=== PATIENT | female | born 2005 | race Caucasian/White ===

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

== ENCOUNTER 2023-07-07 08:26 | Outpatient (REF) | payer MEDICAID, SELFPAY ==
[2023-07-07 11:33] LABS: Hematocrit 43.5 % (37.0-47.0); Hemoglobin 13.7 g/dl (12.0-16.0); Mean Corpuscular HGB Conc 31.5 g/dl (31.0-35.0); Mean Corpuscular Hemoglobin 25.7 pg (27.0-33.0); Mean Corpuscular Volume 81.6 fL (80.0-98.0); Mean Platelet Volume 10.3 fL (9.4-12.3); Platelet Count 349 X10*3/uL (160-400); Red Blood Count 5.33 X10*6/uL (4.20-5.50); Red Cell Distribution Width 13.6 % (11.0-16.0); White Blood Count 12.3 X10*3/uL (4.8-10.8)
[2023-07-07 12:15] LABS: Alanine Aminotransferase 20 U/L (0-31); Albumin Level 4.3 g/dL (3.5-5.0); Alkaline Phosphatase 96 U/L (39-117); Anion Gap 13 (12-20); Aspartate Amino Transferase 21 U/L (5-31); Bilirubin Total 0.3 mg/dL (0.0-1.0); Blood Urea Nitrogen 12 mg/dL (9-16); Calcium 9.8 mg/dL (8.4-10.2); Carbon Dioxide 22 mmol/L (22-29); Chloride 108 mmol/L (96-108); Cholesterol 151 mg/dL (<200); Estimated Glomerular Filt Rate > 60; Glucose Random 79 mg/dL (60-115); HDL Cholesterol 42 mg/dL (>40); LDL Cholesterol Calculated 91 mg/dL (<100); Potassium 3.7 mmol/L (3.3-5.1); Sodium 139 mmol/L (135-145); Total Protein 8.3 g/dL (6.5-8.0); Triglycerides 94 mg/dL (<150)
== END 2023-07-07 08:27 | disposition home or self-care (01) ==
LOC: HO.HHCL 08:26
PROVIDERS: Visit Provider Internal Medicine
DX: E66.01 Morbid (severe) obesity due to excess calories (principal); Z68.41 Body mass index [BMI] 40.0-44.9, adult; G40.909 Epilepsy, unspecified, not intractable, without status epilepticus
CPT/HCPCS: 36415; 80053; 80061; 85027

== ENCOUNTER 2023-10-13 19:00 | Emergency (ER) | payer MEDICAID, SELFPAY ==
--- NOTE | ~2023-10-13 | XR_ITS ---
EXAMINATION: XR CHEST CLINICAL INFORMATION: Cough and fever COMPARISON: Previous chest x-ray most recent January 2022 TECHNIQUE: 2 views of the chest were obtained. FINDINGS: No significant abnormality is noted involving the heart, lungs, mediastinum, bony thorax or soft tissues. XR/XR chest 2V IMPRESSION: Unremarkable examination.
[2023-10-13 19:07] VITALS: BP 120/100; PULSE 82; O2SAT 96
--- NOTE | 2023-10-13 19:16 | ED_ITS ---
HPI - Weakness General Chief complaint: Upper Respiratory Symptoms Stated complaint: COVID +,LETHARGIC,AMS,URINE INCONTINENCE Time Seen by Provider: 10/13/23 21:33 Source: patient, family, RN notes reviewed, old records reviewed and senior marketing specialist Mode of arrival: EMS Limitations: language barrier and other (Patient is a poor historian) History of Present Illness HPI Narrative: 18-year-old female with past medical history significant for right-sided hemiparesis due to epilepsy and complications from intracranial procedures 11 years ago presents for evaluation of fevers, weakness and urinary incontinence. The patient is not incontinent of urine at baseline per the patient's caregiver. The patient was diagnosed with COVID-19 9 days ago She has not coughing but does experience occasional shortness of breath She denies any abdominal pain but has had nausea and vomiting They tried to see the primary care provider who referred the patient to the ED for evaluation The patient has no other complaints or concerns at this time Related Data Previous Rx's Medication Instructions Recorded benzonatate 100 mg capsule 100 mg PO BID PRN cough #20 caps 01/25/22 erythromycin 5 mg/gram (0.5 %) eye 1 appl ophthalmic (eye) BID 7 days 01/25/22 ointment #3.5 grams fluticasone propionate 50 1 spray intranasal BID #16 grams 01/25/22 mcg/actuation nasal spray,suspension (Flonase Allergy Relief) loratadine 10 mg tablet (Claritin) 10 mg PO DAILY PRN allergy 01/25/22 symptoms #10 tabs albuterol sulfate 90 mcg/actuation 2 puff inhalation Q4-6H PRN 06/16/22 aerosol inhaler shortness of breath or wheezing #8.5 grams azithromycin 250 mg tablet See Rx Instructions PO .COMPLEX #6 06/16/22 tabs ibuprofen 200 mg tablet 400 mg (2 x 200 mg) PO Q8H PRN 06/16/22 pain 7 days #28 tabs cefuroxime axetil 250 mg tablet 250 mg PO Q12H #14 tabs 10/13/23 ondansetron 4 mg disintegrating 4 mg PO Q8H PRN nausea and 10/13/23 tablet vomiting #20 tabs Allergies Allergy/AdvReac Type Severity Reaction Status Date / Time No Known Allergies Allergy Verified 10/13/23 19:23 [No Known Allergies*] Review of Systems 2 Constitutional: Constitutional: Reports chills, Reports fever(s), Reports malaise, Reports poor appetite and Reports weakness Cardiovascular: Cardiovascular: Denies chest pain and Reports dyspnea Respiratory: Respiratory: Denies cough and Reports dyspnea Gastrointestinal: Gastrointestinal: Denies abdominal pain, Reports diarrhea, Reports nausea and Reports vomiting Musculoskeletal: Musculoskeletal: Denies back pain Integumentary/Breasts: Skin/Breast: Denies rash Neurologic: Reports weakness PMFSH Past Medical History Medical History Brain damage Mentally challenged Seizure Social History Social History Alcohol intake: never Advance Directives: No Advance Directives Information Provided: No Physical Exam 2 Vital Signs: Vital Signs: Last Vital Signs Temp 98.7 F 10/13/23 22:35 Pulse 66 10/13/23 22:35 Resp 20 10/13/23 22:35 BP 107/65 10/13/23 22:35 Pulse Ox 97 10/13/23 22:35 O2 Del Method Room Air 10/13/23 22:35 BMI result Body Mass Index 39.3 Const: General: healthy appearing, comfortable, no acute distress, alert and awake Nutritional Appearance: well nourished Orientation/consciousness: p atient oriented x3 HEENT: Head: Yes normocephalic and Yes atraumatic Eyes: Eyelids: Yes eyelids normal Conjunctivae: conjunctivae normal S clerae: sclerae normal Corneas: corneas normal Pupils: Equal, round and reactive pupils present EOM: EOMs intact bilaterally Neck: Neck: Yes full ROM Resp: Effort & Inspection: normal respiratory effort, able to speak in complete sentences, no audible wheezes and not labored Auscultation: clear to auscultation bilaterally Cardio: Rate: regular rate Rhythm: regular rhythm GI: Inspection: No distended Palpation (GI): Soft to palpation, not firm, nontender, no guarding and not rigid Skin: General skin exam: elasticity normal Neuro: Other: Right-sided hemiparesis General: patient oriented x3 Cranial nerves: Yes Equal, round and reactive pupils present and Yes Bilaterally intact EOM present Course Course Course Narrative: This is a rapid medical exam: Additional HPI, ROS, PE not included below will be deferred to primary provider. Diagnosed with Covid on Wednesday. Mom reports concerns for increased lethargy, weakness, fevers, dizziness, decreased PO intake, headache, diarrhea. Started on Amoxicillin one week ago. Medical Decision Making Medical Decision Making [facility] Narrative: 18-year-old female with history as documented above presents for evaluation of multiple complaints including fevers, weakness, nausea, vomiting, and urinary incontinence. Plan for labs, chest x-ray given the COVID-19 diagnosis was 9 days ago, repeat viral swab, UA. The patient is not septic. Vitals are stable Differential Diagnosis Differential Diagnoses: The differential diagnosis associated with the presentation includes COVID-19 Influenza Postviral pneumonia UTI Sepsis Admission/Observation Consideration of admission/observation: Escalation of care including admission/observation considered Patient considered for admission due to fever and weakness subjectively but ultimately ruled out for sepsis Lab Data [facility] Lab Attestation statement: I reviewed the patient's lab results. No leukocytosis or anemia. Normal platelet count 322 K. no significant electrolyte abnormalities. Despite the vomiting diarrhea the patient's sodium is normal at 141 with a potassium 3.6. Chloride is slightly elevated to 109. Renal function within normal limits, the patient is not tachycardic, not clinically dehydrated. She does have leukocyte esterase with 4+ bacteria in the urine indicative of a UTI which is likely the cause of her incontinence. 10/13/23 19:36 10/13/23 19:36 Labs: Lab Results 10/13/23 10/13/23 10/13/23 Range/Units 19:36 21:27 22:41 WBC 10.8 (4.8-10.8) X10*3/uL RBC 5.63 H (4.20-5.50) X10*6/uL Hgb 14.6 (12.0-16.0) g/dl Hct 45.9 (37.0-47.0) % MCV 81.5 (80.0-98.0) fL MCH 25.9 L (27.0-33.0) pg MCHC 31.8 (31.0-35.0) g/dl RDW 13.4 (11.0-16.0) % Plt Count 322 (160-400) X10*3/uL MPV 9.6 (9.4-12.3) fL Immature Gran % (Auto) 0.4 (0.0-0.4) % Neut % (Auto) 50.5 (45-73) % Lymph % (Auto) 40.3 H (20-40) % [place] % (Auto) 6.7 (2-11) % Eos % (Auto) 1.7 (0-4) % Baso % (Auto) 0.4 (0-2) % Lymph # (Auto) 4.3 (1.2-4.9) X10*3/uL [place] # (Auto) 0.7 (0.1-1.2) X10*3/uL Eos # (Auto) 0.2 (0.0-0.4) X10*3/uL Baso # (Auto) 0.0 (0.0-0.2) X10*3/uL Abs Immat Gran (auto) 0.04 H (0.00-0.03) X10*3/uL Absolute Neuts (auto) 5.5 (2.0-8.3) x10*3/uL Absolute Nucleated RBC 0.000 (0.0-0.012) X10*3/uL Nucleated RBC % (auto) 0.0 (0.0-0.2) /100WBC Sodium 141 (135-145) mmol/L Potassium 3.6 (3.3-5.1) mmol/L Chloride 109 H (96-108) mmol/L Carbon Dioxide 23 (22-29) mmol/L Anion Gap 13 (12-20) BUN 7 L (9-16) mg/dL Creatinine 0.90 (0.5-1.4) mg/dL Estim Creat Clear Calc 92.3 Estimated GFR > 60 Random Glucose 86 (60-115) mg/dL Calcium 10.1 (8.4-10.2) mg/dL Magnesium 2.0 (1.6-2.6) mg/dL Total Bilirubin 0.3 (0.0-1.0) mg/dL AST 18 (5-31) U/L ALT 23 (0-31) U/L Alkaline Phosphatase 79 (39-117) U/L Total Protein 8.7 H (6.5-8.0) g/dL Albumin 4.4 (3.5-5.0) g/dL Beta HCG, Quant < 2 mIU/mL Urine Color Dark Yellow Urine Appearance Cloudy Urine pH 7.0 (5.0-9.0) Ur Specific [place] >= 1.030 H (1.005-1.025) Urine Protein 30 (1+) H (Neg-Trace) mg/dL Urine Glucose (UA) Negative (Negative) mg/dL Urine Ketones 15 (Negative) mg/dL Urine Blood Negative (Negative) Urine Nitrite Negative (Negative) Ur Leukocyte Esterase Small (1+) H (Negative) Urine RBC 0-2 (0-2) /HPF Urine WBC 0-5 (0-5) /HPF Ur Squamous Epith Cells 11-20 (0-2) /HPF Calcium Oxalate Crystal Present Urine Bacteria 4+ (None Seen) Hyaline Casts 0-2 (0-2) /LPF Influenza Type A (PCR) NEGATIVE (Negative) Influenza Type B (PCR) NEGATIVE (Negative) RSV RNA Qual (PCR) NEGATIVE (Negative) SARS-CoV-2 RNA (RT-PCR) NEGATIVE (Negative) Independent Interpretation I performed an independent interpretation of an: Plain X-Ray (No focal infiltrates) Radiology Impression Discussion of test interpretation with radiology: I have reviewed the radiologist's reading. (Unremarkable examination of chest x-ray) Discharge Plan Discharge Clinical Impression: Urinary tract infection Patient Disposition: Home, Self-Care Instructions: Urinary Tract Infection in Women (ED) Additional Instructions: You have a urinary tract infection. Take Zofran as needed for nausea and vomiting. Take cefuroxime twice daily for 1 week Drink lots of fluids, small sips at a time Follow-up your primary doctor Return for new or worsening symptoms Prescriptions: New ondansetron 4 mg tablet,disintegrating 4 mg PO Q8H PRN (Reason: nausea and vomiting) Qty: 20 0RF cefuroxime axetil 250 mg tablet 250 mg PO Q12H Qty: 14 0RF No Action erythromycin 5 mg/gram (0.5 %) ointment 1 appl ophthalmic (eye) BID 7 Days Qty: 3.5 0RF benzonatate 100 mg capsule 100 mg PO BID PRN (Reason: cough) Qty: 20 0RF fluticasone propionate [Flonase Allergy Relief] 50 mcg/actuation spray,suspension 1 spray intranasal BID Qty: 16 0RF Rx Instructions: administer into each nostril loratadine [Claritin] 10 mg tablet 10 mg PO DAILY PRN (Reason: allergy symptoms) Qty: 10 0RF albuterol sulfate 90 mcg/actuation HFA aerosol inhaler 2 puff inhalation Q4-6H PRN (Reason: shortness of breath or wheezing) Qty: 8.5 0RF azithromycin 250 mg tablet See Rx Instructions .ROUTE .COMPLEX Qty: 6 0RF Rx Instructions: For 250 mg dose pack: take 500 mg today (day 1), then 250 mg for 4 days (days 2-5) ibuprofen 200 mg tablet 400 mg PO Q8H PRN (Reason: pain) 7 Days Qty: 28 0RF
[2023-10-13 19:18] VITALS: BP 107/48; PULSE 85; RESP 18; TEMP 37.2; O2SAT 98; BMI 39.3
[2023-10-13 19:40] LABS: MANUAL DIFF FLAG NO
[2023-10-13 19:41] LABS: Basophils Percent Auto 0.4 % (0-2); Eosinophils Absolute Auto 0.2 X10*3/uL (0.0-0.4); Eosinophils Percent Auto 1.7 % (0-4); Hematocrit 45.9 % (37.0-47.0); Hemoglobin 14.6 g/dl (12.0-16.0); Imm Gran Abs Auto 0.04 X10*3/uL (0.00-0.03); Imm Gran Pct Auto 0.4 % (0.0-0.4); Lymphocytes Absolute Auto 4.3 X10*3/uL (1.2-4.9); Lymphocytes Percent Auto 40.3 % (20-40); Mean Corpuscular HGB Conc 31.8 g/dl (31.0-35.0); Mean Corpuscular Hemoglobin 25.9 pg (27.0-33.0); Mean Corpuscular Volume 81.5 fL (80.0-98.0); Mean Platelet Volume 9.6 fL (9.4-12.3); Monocytes Absolute Auto 0.7 X10*3/uL (0.1-1.2); Monocytes Percent Auto 6.7 % (2-11); Neutrophils Absolute Auto 5.5 x10*3/uL (2.0-8.3); Neutrophils Percent Auto 50.5 % (45-73); Platelet Count 322 X10*3/uL (160-400); Red Blood Count 5.63 X10*6/uL (4.20-5.50); Red Cell Distribution Width 13.4 % (11.0-16.0); White Blood Count 10.8 X10*3/uL (4.8-10.8)
[2023-10-13 19:57] LABS: Alanine Aminotransferase 23 U/L (0-31); Albumin Level 4.4 g/dL (3.5-5.0); Alkaline Phosphatase 79 U/L (39-117); Anion Gap 13 (12-20); Aspartate Amino Transferase 18 U/L (5-31); Bilirubin Total 0.3 mg/dL (0.0-1.0); Blood Urea Nitrogen 7 mg/dL (9-16); Calcium 10.1 mg/dL (8.4-10.2); Carbon Dioxide 23 mmol/L (22-29); Chloride 109 mmol/L (96-108); Creatinine Clr Calc Pharmacy 92.3; Estimated Glomerular Filt Rate > 60; Glucose Random 86 mg/dL (60-115); Potassium 3.6 mmol/L (3.3-5.1); Sodium 141 mmol/L (135-145); Total Protein 8.7 g/dL (6.5-8.0)
[2023-10-13 22:03] LABS: HCG Quantitative < 2 mIU/mL
[2023-10-13 22:29] LABS: Influenza A PCR NEGATIVE (Negative); Influenza B PCR NEGATIVE (Negative); Resp Syncy Virus RNA Qual PCR NEGATIVE (Negative); SARS COV2 PCR INHOUSE NEGATIVE (Negative)
[2023-10-13 22:35] VITALS: BP 107/65; PULSE 66; RESP 20; TEMP 37.1; O2SAT 97
[2023-10-13 22:50] LABS: Appearance Urine Cloudy; Color Urine Dark Yellow; Glucose Urine UA Negative (Negative); Leukocyte Esterase Urine Small (1+) (Negative); Nitrite Urine Negative (Negative); Specific Gravity - Urine >= 1.030 (1.005-1.025); UMIC TRIGGER UACC YES; Urine Blood Negative (Negative); Urine Ketones 15 mg/dL (Negative); Urine Protein 30 (1+) mg/dL (Neg-Trace)
[2023-10-13 23:01] LABS: Bacteria Urine 4+ (None Seen); Calcium Oxalate Crystals Urine Present; Hyaline Casts Urine 0-2 /LPF (0-2); RBC Urine 0-2 /HPF (0-2); UACC Culture Trigger YES; WBC Urine 0-5 /HPF (0-5)
[2023-10-13] MEDS: Ketorolac Tromethamine 30 MG/ML VIAL IVPUSH (23:10)
[2023-10-13] MEDS: 0.9 % Sodium Chloride 1,000 ML 999 ML IV (23:10)
[2023-10-14] MEDS: cefuroxime axetiL 250 MG TABLET PO (00:35)
== END 2023-10-14 00:41 | disposition home or self-care (01) ==
PROVIDERS: Nurse Practitioner Family; Student in an Organized Health Care Education/Training Program; Emergency Provider Internal Medicine
DX: N39.0 Urinary tract infection, site not specified (principal); G81.91 Hemiplegia, unspecified affecting right dominant side; G40.909 Epilepsy, unspecified, not intractable, without status epilepticus; Z11.52 Encounter for screening for COVID-19; Z20.828 Contact with and (suspected) exposure to other viral communicable diseases
CPT/HCPCS: 0241U; 36415; 71046; 80053; 81001; 83735; 84702; 85025; 87086; 96374; 99284; J1885

== ENCOUNTER 2024-09-15 15:04 | Outpatient (REF) | payer MEDICAID, SELFPAY ==
--- OUTSIDE RECORDS SUMMARY | 2024-09-15 15:07 | XMS_ITS | Clinical Summary ---
Author Organization [facility]'s Address [address] [place] [address] Care Team Providers Care Oncology Social Worker Name Role Phone Stacie Garcia MD Primary Care Provider [phone] Allergies No known active allergies Medications FLUoxetine (PROzac) 10 mg capsule Take 10 mg by mouth in the morning. 06/23/2023 Active fluticasone (Flovent) 44 mcg/actuation inhaler INHALE 2 PUFFS BY MOUTH TWICE DAILY RINSE MOUTH AFTER USING. 05/06/2017 Active montelukast (Singulair) 10 mg tablet Take 10 mg by mouth. 06/02/2023 Active topiramate 50 mg tablet Take 1 tablet by mouth at bedtime. 06/23/2023 Active traZODone (Desyrel) 100 mg tablet Take 100 mg by mouth at bedtime. 06/23/2023 Active Social History Tobacco Use Types Packs/Day Years Used Date Smoking Tobacco: Never Assessed Comments Unknown Sex and Gender Information Value Date Recorded Sex Assigned at Female 05/18/2022 9:37 PM EDT Legal Sex Female 9:37 PM EDT Gender Identity Not on file Sexual Orientation Not on file Last Filed Vital Signs Vital Sign Reading Time Taken Comments Blood Pressure - - Pulse - - Temperature - - Respiratory Rate - - Oxygen Saturation - - Inhaled Oxygen Concentration - - Weight 85.3 kg (188 lb 0.8 oz) 07/27/2023 11:16 AM EST Height 149.4 cm (4' 10.82 ) 07/27/2023 11:16 AM EST Body Mass Index 38.22 07/27/2023 11:16 AM EST Plan of Treatment Not on file Insurance MEDICAID OF [place] [employer] Care Teams Oncology Social Worker Relationship Specialty Start Date End Date Stacie Garcia MD [address] [place] [address] [place] [phone] PCP - General 04/30/22
[2024-09-15 16:23] LABS: MANUAL DIFF FLAG NO
[2024-09-15 16:44] LABS: Basophils Absolute Auto 0.1 X10*3/uL (0.0-0.2); Basophils Percent Auto 0.5 % (0-2); Eosinophils Absolute Auto 0.2 X10*3/uL (0.0-0.4); Eosinophils Percent Auto 1.4 % (0-4); Hematocrit 44.8 % (37.0-47.0); Hemoglobin 14.5 g/dl (12.0-16.0); Imm Gran Abs Auto 0.05 X10*3/uL (0.00-0.03); Imm Gran Pct Auto 0.4 % (0.0-0.4); Lymphocytes Absolute Auto 4.9 X10*3/uL (1.2-4.9); Lymphocytes Percent Auto 37.5 % (20-40); Mean Corpuscular HGB Conc 32.4 g/dl (31.0-35.0); Mean Corpuscular Hemoglobin 27.6 pg (27.0-33.0); Mean Corpuscular Volume 85.2 fL (80.0-98.0); Mean Platelet Volume 10.3 fL (9.4-12.3); Monocytes Absolute Auto 1.1 X10*3/uL (0.1-1.2); Monocytes Percent Auto 8.1 % (2-11); Neutrophils Absolute Auto 6.8 x10*3/uL (2.0-8.3); Neutrophils Percent Auto 52.1 % (45-73); Platelet Count 353 X10*3/uL (160-400); Red Blood Count 5.26 X10*6/uL (4.20-5.50); Red Cell Distribution Width 12.4 % (11.0-16.0); White Blood Count 13.1 X10*3/uL (4.8-10.8)
[2024-09-15 16:58] LABS: Iron 64 mcg/dL (30-160); Percent Iron Saturation 22 % (15-50); Total Iron Binding Capacity 297 mcg/dL (228-428); Unsaturated Iron Binding 233 ug/dL
[2024-09-15 17:13] LABS: TSH reflex Free T4 0.76 uIU/mL (0.32-4.0)
[2024-09-16 08:32] LABS: HIV AB/AG Nonreactive (Nonreactive); HIV Num 1 0.06 S/CO (0.00-0.99); ~HepC Num1 0.11 S/CO (0.00-0.79); ~Hepatitis C Antibody Nonreactive (Nonreactive)
== END 2024-09-15 15:05 | disposition home or self-care (01) ==
LOC: HO.HHCL 15:04
PROVIDERS: Visit Provider Nurse Practitioner
DX: Z11.4 Encounter for screening for human immunodeficiency virus [HIV] (principal); Z13.89 Encounter for screening for other disorder; L65.9 Nonscarring hair loss, unspecified
CPT/HCPCS: 36415; 83540; 84443; 85025; 86803; 87389

== ENCOUNTER 2024-10-10 13:02 | Emergency (ER) | payer MEDICAID, SELFPAY ==
--- NOTE | ~2024-10-10 | CT_ITS ---
CLINICAL HISTORY: abd pain, N V CT abdomen and pelvis without contrast Comparison: CT series from 05/08/2018 Findings: No consolidation of the imaged lung bases. No obstructing stone of either kidney or either ureter. The adrenal glands are normal. Spleen is nonenlarged. Mild fat deposition of the liver noted adjacent to the falciform ligament Pancreas, gallbladder, and liver are otherwise unremarkable for noncontrast study with motion artifacts. Nonenlarged lymphadenopathy. No small bowel obstruction. Severe and diffuse stool burden present, including the cecum. Imaged appendix is within normal limits. Phleboliths are noted in the pelvis. The uterus is anteverted with intrauterine device in place. No adnexal soft tissue mass by noncontrast CT. Mild wall thickening of the urinary bladder is nonspecific. Physis (growth plates) adjacent to the pubic symphysis remain open. Transitional vertebral anatomy of the lumbosacral junction IMPRESSION: 1. Severe stool burden. No small bowel obstruction. 2. No obstructing stone in either kidney or either ureter This document has been electronically signed by: Immanuel Davis MD on 10/11/2024 01:53:39
--- NOTE | ~2024-10-10 | CT_ITS ---
CLINICAL HISTORY: H A N V prior CVA and brain surg? 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 No significant change in 9 mm of midline shift to the left. No acute intracranial hemorrhage. No new brain infarction by CT. No significant change in remaining ventricular system. No new or acute hydrocephalus. Thin left frontal and parietal bones are redemonstrated. No acute skull fracture. Imaged paranasal sinuses and mastoid air cells are well-aerated. Imaged orbits are unremarkable. Superficial metal partially imaged laterally in the left. IMPRESSION: 1. No acute intracranial hemorrhage. 2. Redemonstration of the cystic encephalomalacia of the left hemisphere compared with MRI from 10/27/2021 This document has been electronically signed by: Immanuel Davis MD on 10/11/2024 01:48:47
[2024-10-10 13:10] VITALS: BP 90/50; PULSE 91; O2SAT 99
[2024-10-10 13:53] VITALS: BP 119/62; PULSE 74; RESP 16; TEMP 36.6; O2SAT 99; BMI 34.9
[2024-10-10 14:33] LABS: MANUAL DIFF FLAG NO
[2024-10-10 14:36] LABS: Basophils Percent Auto 0.2 % (0-2); Hematocrit 44.8 % (37.0-47.0); Hemoglobin 14.6 g/dl (12.0-16.0); Imm Gran Abs Auto 0.11 X10*3/uL (0.00-0.03); Imm Gran Pct Auto 0.5 % (0.0-0.4); Lymphocytes Absolute Auto 1.7 X10*3/uL (1.2-4.9); Lymphocytes Percent Auto 8.6 % (20-40); Mean Corpuscular HGB Conc 32.6 g/dl (31.0-35.0); Mean Corpuscular Hemoglobin 27.7 pg (27.0-33.0); Mean Corpuscular Volume 84.8 fL (80.0-98.0); Mean Platelet Volume 9.8 fL (9.4-12.3); Monocytes Absolute Auto 0.6 X10*3/uL (0.1-1.2); Monocytes Percent Auto 3.2 % (2-11); Neutrophils Absolute Auto 17.7 x10*3/uL (2.0-8.3); Neutrophils Percent Auto 87.5 % (45-73); Platelet Count 289 X10*3/uL (160-400); Red Blood Count 5.28 X10*6/uL (4.20-5.50); Red Cell Distribution Width 12.1 % (11.0-16.0); White Blood Count 20.2 X10*3/uL (4.8-10.8)
[2024-10-10 15:17] LABS: Influenza A PCR NEGATIVE (Negative); Influenza B PCR NEGATIVE (Negative); Resp Syncy Virus RNA Qual PCR NEGATIVE (Negative); SARS COV2 PCR INHOUSE NEGATIVE (Negative)
[2024-10-10 15:18] LABS: Alanine Aminotransferase 19 U/L (0-31); Albumin Level 4.6 g/dL (3.5-5.0); Alkaline Phosphatase 78 U/L (39-117); Anion Gap 14 (12-20); Aspartate Amino Transferase 23 U/L (5-31); Bilirubin Direct 0.1 mg/dL (0.0-0.5); Bilirubin Total 0.3 mg/dL (0.0-1.0); Blood Urea Nitrogen 10 mg/dL (9-16); Calcium 9.8 mg/dL (8.4-10.2); Carbon Dioxide 25 mmol/L (22-29); Chloride 106 mmol/L (96-108); Creatinine Clr Calc Pharmacy 106.1; Estimated Glomerular Filt Rate > 60; Glucose Random 86 mg/dL (60-115); Lipase 33 U/L (8-78); Magnesium 2.1 mg/dL (1.6-2.6); Potassium 4.1 mmol/L (3.3-5.1); Sodium 141 mmol/L (135-145)
[2024-10-10 15:19] LABS: HCG Quantitative < 2 mIU/mL
--- NOTE | 2024-10-10 16:27 | ED_ITS ---
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 Patient was at school today, around lunchtime approximately 12:00 after eating bread and spaghetti and meatballs she began to feel unwell experiencing a slight headache, nausea followed by vomiting and a single episode of diarrhea as well as abdominal pain. Mother reports that she received a call from the school that patient was sitting in a wheelchair she was too weak to walk to the bathroom, and she came unresponsive?, mother reports that the teacher advised her that her eyes rolled to the back her head. Mother shows me a video on her phone that was sent to her from the teacher where patient is in a seated position with eyes fully closed, no tonic-clonic like movement noted in the video. Mother reports that she has had a history of seizures when she was younger, but in 2010 she had brain surgery in [place], Lobectomy and has had no further seizures since, she is compliant with her topiramate. Mother reports that staff stated that she was not noted to have tonic-clonic like movement, patient endorses recalling her hands becoming tremulous? moving throughout my body?. Currently she remains feeling nauseous but has had no further episodes of vomiting, mother states that she brought her to the restroom in the waiting room and she had no further episodes of diarrhea. Related Data Previous Rx's ?Medication ?Instructions ?Recorded benzonatate 100 mg capsule 100 mg PO BID PRN cough #20 caps 01/25/22 erythromycin 5 mg/gram (0.5 %) eye 1 appl ophthalmic (eye) BID 7 days 01/25/22 ointment #3.5 grams fluticasone propionate 50 1 spray intranasal BID #16 grams 01/25/22 mcg/actuation nasal spray,suspension (Flonase Allergy Relief) loratadine 10 mg tablet (Claritin) 10 mg PO DAILY PRN allergy 01/25/22 symptoms #10 tabs albuterol sulfate 90 mcg/actuation 2 puff inhalation Q4-6H PRN 06/16/22 aerosol inhaler shortness of breath or wheezing #8.5 grams azithromycin 250 mg tablet See Rx Instructions PO .COMPLEX #6 06/16/22 tabs ibuprofen 200 mg tablet 400 mg (2 x 200 mg) PO Q8H PRN 06/16/22 pain 7 days #28 tabs cefuroxime axetil 250 mg tablet 250 mg PO Q12H #14 tabs 10/13/23 ondansetron 4 mg disintegrating 4 mg PO Q8H PRN nausea and 10/13/23 tablet vomiting #20 tabs cefuroxime axetil 250 mg tablet 250 mg PO BID #14 tabs 10/11/24 polyethylene glycol 3350 17 17 g PO BID #119 grams 10/11/24 gram/dose oral powder (Miralax) Allergies Allergy/AdvReac Type Severity Reaction Status Date / Time No Known Allergies Allergy Verified 10/10/24 13:56 [No Known Allergies*] Review of Systems 2 Review of Systems: Yes all other systems are reviewed and are negative [facility] Past Medical History Attestation statement: The following information was validated with the patient. Source: old records reviewed Medical History Mentally challenged Brain damage Seizure Social History Social History Alcohol intake: never Smoked in Last 30 Days: No Use of substances other than those prescribed or required for medical reasons: No Advance Directives: No Advance Directives Information Provided: Yes Do you have a plan to hurt others: No Plan Physical Exam 2 Vital Signs: Vital Signs: Last Vital Signs Temp 97.8 F 10/10/24 20:37 Pulse 62 10/11/24 00:45 Resp 18 10/11/24 00:45 BP 101/64 10/11/24 00:45 Pulse Ox 100 10/11/24 00:45 O2 Del Method Room Air 10/11/24 00:45 BMI result Body Mass Index 34.9 Appearance: Alert.?Oriented to person, place and time. No acute distress.?Normal affect. Eyes: Pupils equal, round and reactive to light.? EOMI. No nystagmus. ENT: Pharynx normal.?? Neck: Normal inspection.? Neck supple.?? CVS: Heart sounds normal. Normal heart rate and rhythm.? Pulses normal.?? Respiratory: No respiratory distress.? Lung sounds clear to auscultation bilaterally?? Abdomen: Soft with mild left and right upper quadrant abdominal tenderness upon palpation. Normoactive bowel sounds. Skin: Skin warm and dry.? Normal skin color.? Extremities: No lower extremity edema.? No calf ttp? Neuro: Moves all extremities spontaneously. Sensation intact bilaterally. Baseline right hemiparesis, no further focal neurological deficits. Ambulates with unsteady gait, per mother is at baseline Course Course Course Narrative: This is an RME: Additional HPI, ROS, PE not included below will be deferred to primary provider. 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 Patient denies any abdominal pain. Plan: labs, UA, further ER evaluation needed. Reevaluation(s) Reevaluation #1: No lactic acidosis, she is tolerating oral intake, urinalysis with concern for UTI, bladder wall thickening seen on CT, received Rocephin in the ED, will plan for discharge home with cefuroxime, she is afebrile without tachycardia, not meeting sepsis criteria. CT abdomen and pelvis also revealing severe constipation. Advised increase fluid intake, high-fiber diet, MiraLax. Orthostatic vital signs are negative. Reviewed with mother possibility for seizure having occurred earlier today, reviewed close monitoring, outpatient follow-up with PCP. Discussed strict return precautions to the ED Medications Administered Discontinued Medications Generic Name Dose Route Start Last Admin Trade Name Freq PRN Reason Stop Dose Admin Ceftriaxone Sodium 1 gm/ 0 gm 10/11/24 00:49 10/11/24 01:33 Lidocaine HCl 2.1 ml IM 10/11/24 00:50 1 kit ONCE ONE Administration Medical Decision Making Medical Decision Making [facility] Narrative: 10/10/2024 23:45 assumed care of patient Patient is a 19-year-old female with past medical history of right-sided hemiparesis, seizure disorder as per HPI has not had seizure since 2010, intracranial surgery exact etiology unclear presenting with mother to emergency department for evaluation of sudden onset weakness, headache, nausea, vomiting, abdominal pain and diarrhea with possible syncope versus seizure. Currently patient endorses feeling mildly nauseous, his mild pain in the upper abdomen on evaluation. Baseline right hemiparesis mother reports appears no worse than usual otherwise without further focal neurological deficits. She is able to speak clear full sentences. No respiratory distress. No nuchal rigidity. On review of serum labs obtained prior to my assumption of care she has a notable leukocytosis of 20,200 with left shift, no anemia, no thrombocytopenia. No electrolyte derangement. No GRAYSON. LFTs unremarkable. HCG is negative. Urinalysis with 1+ leukocyte esterase, 6-10 urine WBCs 2 +urine bacteria, squamous epithelial cells present additionally and calcium oxalate crystals present. Concern for mild UTI versus urogenital contamination, given associated leukocytosis and nausea/vomiting will cover with Rocephin. Patient received 1 L normal saline IV fluid, blood cultures and lactic acid will be obtained, given the abrupt onset of her symptoms, will obtain head CT to exclude acute intracranial pathology associated abdominal pain CT of the abdomen pelvis to evaluate for cholecystitis, pyelonephritis, hydronephrosis, calculi. Leukocytosis may be reactive after seizure, given report mother received from school staff, will additionally obtain CPK level. Differential Diagnosis Differential Diagnoses: The differential diagnosis associated with the presentation includes (See narrative above) Admission/Observation Consideration of admission/observation: Escalation of care including admission/observation considered (See narrative above) Lab Data MDM Lab Attestation statement: I reviewed the patient's lab results. (See narrative above) 10/10/24 14:28 10/10/24 14:28 Labs: Lab Results 10/10/24 10/10/24 10/11/24 Range/Units 14:28 22:35 01:15 WBC 20.2 H (4.8-10.8) X10*3/uL RBC 5.28 (4.20-5.50) X10*6/uL Hgb 14.6 (12.0-16.0) g/dl Hct 44.8 (37.0-47.0) % MCV 84.8 (80.0-98.0) fL MCH 27.7 (27.0-33.0) pg MCHC 32.6 (31.0-35.0) g/dl RDW 12.1 (11.0-16.0) % Plt Count 289 (160-400) X10*3/uL MPV 9.8 (9.4-12.3) fL Immature Gran % (Auto) 0.5 H (0.0-0.4) % Neut % (Auto) 87.5 H (45-73) % Lymph % (Auto) 8.6 L (20-40) % Blair % (Auto) 3.2 (2-11) % Eos % (Auto) 0.0 (0-4) % Baso % (Auto) 0.2 (0-2) % Lymph # (Auto) 1.7 (1.2-4.9) X10*3/uL Blair # (Auto) 0.6 (0.1-1.2) X10*3/uL Eos # (Auto) 0.0 (0.0-0.4) X10*3/uL Baso # (Auto) 0.0 (0.0-0.2) X10*3/uL Abs Immat Gran (auto) 0.11 H (0.00-0.03) X10*3/uL Absolute Neuts (auto) 17.7 H (2.0-8.3) x10*3/uL Absolute Nucleated RBC 0.000 (0.0-0.012) X10*3/uL Nucleated RBC % (auto) 0.0 (0.0-0.2) /100WBC Sodium 141 (135-145) mmol/L Potassium 4.1 (3.3-5.1) mmol/L Chloride 106 (96-108) mmol/L Carbon Dioxide 25 (22-29) mmol/L Anion Gap 14 (12-20) BUN 10 (9-16) mg/dL Creatinine 0.79 (0.5-1.4) mg/dL Estim Creat Clear Calc 106.1 Estimated GFR > 60 Random Glucose 86 (60-115) mg/dL Lactic Acid 1.2 (0.5-2.0) mmol/L Calcium 9.8 (8.4-10.2) mg/dL Magnesium 2.1 (1.6-2.6) mg/dL Total Bilirubin 0.3 (0.0-1.0) mg/dL Direct Bilirubin 0.1 (0.0-0.5) mg/dL AST 23 (5-31) U/L ALT 19 (0-31) U/L Alkaline Phosphatase 78 (39-117) U/L Total Creatine Kinase 61 (26-140) U/L Total Protein 9.0 H (6.5-8.0) g/dL Albumin 4.6 (3.5-5.0) g/dL Lipase 33 (8-78) U/L Beta HCG, Quant < 2 mIU/mL Urine Color Dark Yellow Urine Appearance Cloudy Urine pH 5.5 (5.0-9.0) Ur Specific [place] >= 1.030 H (1.005-1.025) Urine Protein Trace (Neg-Trace) mg/dL Urine Glucose (UA) Negative (Negative) mg/dL Urine Ketones Trace (Negative) mg/dL Urine Blood Negative (Negative) Urine Nitrite Negative (Negative) Ur Leukocyte Esterase Small (1+) H (Negative) Urine RBC 3-5 H (0-2) /HPF Urine WBC 6-10 H (0-5) /HPF Ur Squamous Epith Cells 6-10 (0-2) /HPF Calcium Oxalate Crystal Present Urine Bacteria 2+ (None Seen) Hyaline Casts 0-2 (0-2) /LPF Influenza Type A (PCR) NEGATIVE (Negative) Influenza Type B (PCR) NEGATIVE (Negative) RSV RNA Qual (PCR) NEGATIVE (Negative) SARS-CoV-2 RNA (RT-PCR) NEGATIVE (Negative) Radiology Impression Discussion of test interpretation with radiology: I have reviewed the radiologist's reading. Radiologist Impression: CT head without contrast Comparison: MRI of the brain from 10/27/2021 Findings: Cystic encephalomalacia redemonstrated in the left hemisphere with relative occipital spurring. 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 No significant change in 9 mm of midline shift to the left. No acute intracranial hemorrhage. No new brain infarction by CT. No significant change in remaining ventricular system. No new or acute hydrocephalus. Thin left frontal and parietal bones are redemonstrated. No acute skull fracture. Imaged paranasal sinuses and mastoid air cells are well-aerated. Imaged orbits are unremarkable. Superficial metal partially imaged laterally in the left. IMPRESSION: 1. No acute intracranial hemorrhage. 2. Redemonstration of the cystic encephalomalacia of the left hemisphere compared with MRI from 10/27/2021 CT abdomen and pelvis without contrast Comparison: CT series from 05/08/2018 Findings: No consolidation of the imaged lung bases. No obstructing stone of either kidney or either ureter. The adrenal glands are normal. Spleen is nonenlarged. Mild fat deposition of the liver noted adjacent to the falciform ligament Pancreas, gallbladder, and liver are otherwise unremarkable for noncontrast study with motion artifacts. Nonenlarged lymphadenopathy. No small bowel obstruction. Severe and diffuse stool burden present, including the cecum. Imaged appendix is within normal limits. Phleboliths are noted in the pelvis. The uterus is anteverted with intrauterine device in place. No adnexal soft tissue mass by noncontrast CT. Mild wall thickening of the urinary bladder is nonspecific. Physis (growth plates) adjacent to the pubic symphysis remain open. Transitional vertebral anatomy of the lumbosacral junction IMPRESSION: 1. Severe stool burden. No small bowel obstruction. 2. No obstructing stone in either kidney or either ureter Independent Historian Clinical information obtained from an independent historian. History obtained from or confirmed by: Parent External Record Review External record reviewed: Outpatient record Chronic Conditions Patient?s care impacted by: Other (See narrative above) Discharge Plan Discharge Clinical Impression: Urinary tract infection, Constipation Patient Disposition: Home, Self-Care Instructions: Constipation (ED), Urinary Tract Infection in Women (ED), High Fiber Diet (ED) Additional Instructions: Found to have a urinary tract infection today as well as significant constipation. Be sure to stay well hydrated, drink plenty of fluids, increase fiber in diet to help promote bowel movement. Antibiotics for urinary tract infection was sent to pharmacy this may be started tomorrow morning take twice daily as prescribed. Prescription for MiraLax also sent to pharmacy, take 2 times daily in 8 oz of water Contact primary care doctor and arrange for a follow-up visit. Prescriptions: New cefuroxime axetil 250 mg tablet 250 mg PO BID Qty: 14 0RF polyethylene glycol 3350 [Miralax] 17 gram/dose powder 17 g PO BID Qty: 119 0RF No Action erythromycin 5 mg/gram (0.5 %) ointment 1 appl ophthalmic (eye) BID 7 Days Qty: 3.5 0RF benzonatate 100 mg capsule 100 mg PO BID PRN (Reason: cough) Qty: 20 0RF fluticasone propionate [Flonase Allergy Relief] 50 mcg/actuation spray,suspension 1 spray intranasal BID Qty: 16 0RF Rx Instructions: administer into each nostril loratadine [Claritin] 10 mg tablet 10 mg PO DAILY PRN (Reason: allergy symptoms) Qty: 10 0RF albuterol sulfate 90 mcg/actuation HFA aerosol inhaler 2 puff inhalation Q4-6H PRN (Reason: shortness of breath or wheezing) Qty: 8.5 0RF azithromycin 250 mg tablet See Rx Instructions .ROUTE .COMPLEX Qty: 6 0RF Rx Instructions: For 250 mg dose pack: take 500 mg today (day 1), then 250 mg for 4 days (days 2-5) ibuprofen 200 mg tablet 400 mg PO Q8H PRN (Reason: pain) 7 Days Qty: 28 0RF ondansetron 4 mg tablet,disintegrating 4 mg PO Q8H PRN (Reason: nausea and vomiting) Qty: 20 0RF cefuroxime axetil 250 mg tablet 250 mg PO Q12H Qty: 14 0RF Print Language: Tunisian
--- OUTSIDE RECORDS SUMMARY | 2024-10-10 18:04 | XMS_ITS | Encounter Summary ---
Author Organization [employer] Address [address] [facility] [address] [place] [address] Care Team Providers Care Supervisor Stitching Department Name Role Phone Gregoria Giang PATHOLOGY TECH Primary Care Provider [phone] Encounter Details Date Type Department Care Team (Latest Contact Info) Description 09/15/2024 Travel Social History Tobacco Use Types Packs/Day Years Used Date Smoking Tobacco: Never Smokeless Tobacco: Never Alcohol Use Standard Drinks/Week Comments Never 0 (1 standard drink = 0.6 oz pur e alcohol) Depression Answer Date Recorded Patient Health Questionnaire-9 Score 5 01/21/2024 Patient Health Questionnaire-9 Score 5 01/21/2024 Last PHQ-9: Questionnaire Data Not on file 0 01/21/2024 Housing Stability Answer Date Recorded What is your housing situation today? I have johnny poon 09/15/[address] you li ve. Do you have problems with any of the following? None of the above 09/15/2024 Food Insecurity Answer Date Recorded Within the past 12 months, y ou worried that your food would run out before you got money to buy more: Never True 09/15/2024 Within the past 12 months,th e food you bought just didn't last and you didn't have enough money to get more: Never True 02/2025 Transportation Answer Date Recorded In the past 12 months, has l ack of transportation kept you from medical appts, meetings, work or from getting things needed for daily living? No 09/15/2024 Utilities Answer Date Recorded In the past 12 months, has t he electric, gas, oil or water company threatened to shut off services in your home? No 09/15/2024 Depression Answer Date Recorded Patient Health Questionnaire-2 Score 1 01/21/2024 Internet Access Answer Date Recorded Internet Access Q1 Yes 09/15/2024 Internet Access Q2 Not on file 09/15/2024 Comments Unknown Sex and Gender Information Value Date Recorded Sex Assigned at Female 06/08/2022 10:21 AM EDT Legal Sex Female 10:21 AM EDT Gender Identity Female 06/08/2022 10:21 AM EDT Sexual Orientation Choose not to disclose 2021 10:21 AM EDT documented as of this encounter Plan of Treatment Not on file documented as of this encounter Visit Diagnoses Not on filedocumented in this encounter Additional Health Concerns Assessment Noted Time PHQ-9 Depression Total Score: 5 01/21/20 24 10:36 AM EDT documented as of this encounter Care Teams Supervisor Stitching Department Relationship Specialty Start Date End Date Gregoria Giang NP [address] [place] [id number] PCP - General Family Medicine 05/14/23 documented as of this encounter
--- OUTSIDE RECORDS SUMMARY | 2024-10-10 18:04 | XMS_ITS | Encounter Summary ---
Author Organization [employer] Address [address] [place] [address] Care Team Providers Care Qual Research Manager Name Role Phone Gregoria Giang HINA Primary Care Provider [phone] Encounter Details Date Type Department Care Team (Latest Contact Info) Description 10/10/2024 2:20 PM EST Office Visit [facility] [address] [place] [address] Oswaldo Edwards MD [address] [place] [address] Gastroenteritis (Primary Dx) Social History Tobacco Use Types Packs/Day Years Used Date Smoking Tobacco: Never Smokeless Tobacco: Never Alcohol Use Standard Drinks/Week Comments Never 0 (1 standard drink = 0.6 oz pur e alcohol) Depression Answer Date Recorded Patient Health Questionnaire-9 Score 7 09/19/2024 Patient Health Questionnaire-9 Score 7 09/19/2024 Last PHQ-9: Questionnaire Data Not on file 0 09/19/2024 Housing Stability Answer Date Recorded What is [...] Answer Date Recorded Patient Health Questionnaire-2 Score 3 09/19/2024 Internet Access Answer Date Recorded Internet Access Q1 Yes 09/15/2024 Internet Access Q2 Not on file 09/15/2024 Comments Unknown Sex and Gender Information Value Date Recorded Sex Assigned at Female 06/08/2022 10:21 AM EDT Legal Sex Female 10:21 AM EDT Gender Identity Female 06/08/2022 10:21 AM EDT Sexual Orientation Choose not to disclose 2021 10:21 AM EDT documented as of this encounter Last Filed Vital Signs Vital Sign Reading Time Taken Comments Blood Pressure 106/76 10/10/2024 12:31 PM EST Pulse 75 10/10/2024 12:31 PM EST Temperature 36.1 ??C (97 ??F) 10/10/2024 12:31 PM EST Respiratory Rate - - Oxygen Saturation 98% 10/10/2024 12:31 PM EST Inhaled Oxygen Concentration - - Weight - - Height - - Body Mass Index - - documented in this encounter Progress Notes * Savita Muhammad RN - 10/10/2024 2:20 PM EST Mom standing pt up and pt noted to be weak, unable to stand on own, assisted to wheelchair. Mom reports she received calls from school and brought pt to Walk In for v/d. Pt reporting h/a, dizziness, as well as v/d began today. While in triage, mom reporting pt can speak to nurses in Croatian but pt noted to be closing her eyes frequently, noted to have some confusion, reports unaware of where she is currently. Pt reports she has not ate today or drank much. Provider requested to present to room for evaluation. Nurses given verbal order to call EMS. EMS called by Abiel In PIERCE Mendoza. Pt being transported to [facility]. * Devi Mckinley - 10/10/2024 2:20 PM EST Subjective Patient ID: Trisha Smiley is a 19 y.o. female who presents for No chief complaint on file.. Last seen 09/15/24 for hair loss. Here in [facility] today with vomiting, dizziness, and diarrhea. Here with mother. Called to exam room while pt being triaged for light headedness and concerning history. Nurses reported that when pt stands she is unsteady and is unable to stay standing. Started with vomiting at school and school nurses reported to mother that pt was acting confused and dazed. She has had multiple episodes of vomiting and diarrhea today. Has not been drinking well. Pt reports she has not urinated today. R PMH- Constipation, Developmental delay, Difficulty sleeping, Exotropia, Frequent headaches, Hearingloss, Hemiparesis (CMS/HCC), Hypermetropia of both eyes, Intermittent alternating exotropia, Irritable bowel syndrome, Mild persistent asthma, Obesity, Partial symptomatic epilepsy (CMS/HCC), Vicente encephalitis, Spastic hemiplegia affecting dominant side (CMS/HCC), Transformed migraine, Urinaryincontinence, Visual field cut Routine adult health maintenance Influenza A Rash Arm and leg movements, uncontrollable Major depressive disorder, recurrent, mild (CMS/HCC) Pain Cough Acute bacterial conjunctivitis of right eye Anxiety disorder, unspecified. Review of Systems Constitutional: Positive for appetite change. Negative for fever. HENT: Negative for rhinorrhea and sore throat. Eyes: Negative for visual disturbance. Respiratory: Negative for cough and shortness of breath. Gastrointestinal: Positive for diarrhea and vomiting. Negative for abdominal pain. Genitourinary: Positive for decreased urine volume. Musculoskeletal: Negative for back pain. Skin: Negative for rash. Neurological: Positive for dizziness. Psychiatric/Behavioral: Negative for behavioral problems. Objective Physical Exam Constitutional: General: She is not in acute distress (In wheelchair, slumped and asleep. Arouses easily and gives some history.). HENT: Nose: No rhinorrhea. Mouth/Throat: Mouth: Mucous membranes are moist. Pharynx: Oropharynx is clear. Eyes: Conjunctiva/sclera: Conjunctivae normal. Cardiovascular: Rate and Rhythm: Normal rate and regular rhythm. Heart sounds: No murmur heard. Pulmonary: Effort: Pulmonary effort is normal. No respiratory distress. Breath sounds: Normal breath sounds. Abdominal: Palpations: Abdomen is soft. Tenderness: There is no abdominal tenderness. There is no guarding. Musculoskeletal: Cervical back: Neck supple. Skin: General: Skin is warm. Capillary Refill: Capillary refill takes less than 2 seconds. Findings: No rash. Neurological: Mental Status: She is alert and oriented to person, place, and time. Psychiatric: Behavior: Behavior normal. Assessment/Plan Diagnoses and all orders for this visit: Gastroenteritis Having vomiting, diarrhea and dizziness. Unable to take fluids and no urination today. Unsteady with standing and having some confusion at school. -Will transfer to ED by ambulance. -Status check tomorrow. I, Devi Mckinley, serve as a scribe. I document services personally performed by Dr. Oswaldo Edwards, based on the patient's response to questions by provider and provider's statements to me. Devi Mckinley, [employer] ([employer]) documented in this encounter Plan of Treatment Not on file documented as of this encounter Visit Diagnoses Diagnosis Gastroenteritis- Primary Other and unspecified noninfectious gastroenteritis and colitis documented in this encounter Additional Health Concerns Assessment Noted Time PHQ-9 Depression Total Score: 7 09/19/19 25 12:07 PM EST documented as of this encounter Care Teams Qual Research Manager Relationship Specialty Start Date End Date Gregoria Giang NP [address] [place] [id number] PCP - General Family Medicine 05/14/23 documented as of this encounter
--- OUTSIDE RECORDS SUMMARY | 2024-10-10 18:04 | XMS_ITS | Encounter Summary ---
Author Organization [employer] Address [address] [place] [address] Care Team Providers Care Cartography Technician Name Role Phone Gregoria Giang HINA Primary Care Provider [phone] Encounter Details Date Type Department Care Team (Late st Contact Info) Description 09/18/2024 Telephone [facility] [address] [place] [address] Katrin Mike, PIERCE Social History Tobacco Use Types Packs/Day Years [...] AM EDT documented as of this encounter Miscellaneous Notes * Telephone Encounter - Katrin Mike RN - 09/18/2024 9:25 AM EST TC x2 placed to pt via [employer] sales development coordinator ([employer] ID#[id number]) to inform of PCP Gregoria garcia NP; Please call the patient about lab results which reveals slightly elevated WBC. Plan to repeat at next appointment to trend before working up. All other labs are within normal ranges. Thanks No answer, LVM to call office back and ask to speak to blue team nurses. documented in this encounter Plan of Treatment Not on file documented as of this encounter Visit Diagnoses Not on filedocumented in this encounter Additional Health Concerns Assessment Noted Time PHQ-9 Depression Total Score: 5 01/21/20 24 10:36 AM EDT documented as of this encounter Care Teams Cartography Technician Relationship Specialty Start Date End Date Gregoria Giang NP [address] [place] [address] PCP - General Family Medicine 05/14/23 documented as of this encounter
--- OUTSIDE RECORDS SUMMARY | 2024-10-10 18:04 | XMS_ITS | Clinical Summary ---
Author Organization [employer] Address [address] [facility] [address] [place] [address] Care Team Providers Care Dog Day Care Attendant Name Role Phone Gregoria Giang HINA Primary Care Provider [phone] Allergies No known active allergies Medications * This document contains information received from the source organization and may not represent a complete record from that organization. [facility] Abdi[facility] 3 % shampoo WASH SCALP 2-3 TIMES PER WEEK 120 mL 3 023 Active Emollient (AQUAPHOR HEALING BALM EX) 0 Refills, Maintenance, 12/04/20 10:25:00 EDT, Partial fill upon patient request if the prescription is for a schedule II opioid drug. 021 Active hydrocortisone 2.5 % creamIndications: Rash Apply a small amount to face and arm fold two times daily 20 g 1 024 Active propranolol (Inderal) 10 MG tabletIndications :Arm and leg movements, uncontrollable Take half tablet daily for uncontrolled movements 90 tablet 024 Active albuterol (Ventolin HFA) 108 (90 Base) MCG/ACT inhalerIndication s:Asthma, unspecified asthma severity, unspecified whether complicated, unspecified whether persistent INHALE 2 PUFFS EVERY 4 HOURS NEEDED FOR COUGH, WHEEZING, OR SHORTNESS OF BREATH 18 g 2 024 Active cholecalciferol 25 MCG (1000 UT) tabletIndications :Depression, unspecified depression type Take 1 tablet (25 mcg) by mouth in the morning. 30 tablet 2 024 Active FLUoxetine (PROzac) 10 MG capsuleIndication s:Depression, unspecified depression type take 1 capsule by oral route every day 90 capsule 024 Active fluticasone (Flonase Allergy Relief) 50 MCG/ACT nasal sprayIndications: Seasonal allergic rhinitis, unspecified trigger spray 1 - 2 spray by intranasal route every day in each nostril as needed 48 g 024 Active topiramate 50 MG tabletIndications :Chronic migraine without aura without status migrainosus, not intractable TAKE 1 TABLET BY MOUTH DAILY AT BEDTIME 90 tablet 1 024 Active traZODone (Desyrel) 100 MG tabletIndications :Difficulty sleeping Take 1 tablet (100 mg) by mouth at bedtime. 30 tablet 2 024 Active polyethylene glycol, PEG, 3350 (MiraLax) 17 GM/SCOOP powderIndications :Other constipation Mix 1 capful in 8 oz water and drink every day 527 g 1 024 Active phenylephrine 0.25% (Hemorrhoidal) 0.25-14-74.9 % ointmentIndicatio ns:Other constipation APPLY TO THE AFFECTED AREA(S) RECTALLY THREE OR FOUR TIMES DAILY NEEDED FOR RECTAL DISCOMFORT 57 g 024 Active fluticasone furoate (Arnuity Ellipta) 100 MCG/ACT inhalerIndication s:Asthma, unspecified asthma severity, unspecified whether complicated, unspecified whether persistent INHALE 1 PUFF BY MOUTH EVERY DAY AT THE SAME TIME 1 each 11 024 Active montelukast (Singulair) 10 MG tabletIndications :Asthma, unspecified asthma severity, unspecified whether complicated, unspecified whether persistent Take 1 tablet (10 mg) by mouth at bedtime. 90 tablet 1 024 Active sodium chloride ([place] Nasal [place]) 0.65 % nasal sprayIndications: Viral illness Administer 1 spray into each nostril q 1 hour if needed for congestion 30 mL 12 024 Active ibuprofen 600 MG tabletIndications :Viral illness TAKE 1 TABLET BY MOUTH EVERY 6 HOURS NEEDED FOR PAIN OR FEVER 60 tablet 1 025 Active docusate sodium (Colace) 100 MG capsuleIndication s:Other constipation TAKE 1 CAPSULE BY MOUTH EVERY DAY AT BEDTIME 90 capsule 2 025 Active hydrOXYzine HCl (Atarax) 25 MG tabletIndications :Anxiety and depression TAKE 1 TABLET BY MOUTH AT BEDTIME. MAY TAKE 1 TABLET ADDITIONAL NEEDED FOR ANXIETY. DO NOT TAKE MORE THAN 4 TABLETS PER DAY 30 tablet 1 025 Active cetirizine (ZyrTEC) 10 MG tabletIndications :Seasonal allergic rhinitis, unspecified trigger Take 1 tablet (10 mg) by mouth Once per day. Prn. 30 tablet 025 2024 Active mineral oil-hydrophil petrolat ointment Topical Ointment Apply topically if needed. 024 Active docusate sodium (Colace) 100 MG capsuleIndication s:Other constipation TAKE 1 CAPSULE BY MOUTH AT BEDTIME NEEDED 90 capsule 2 024 2024 Discontinued loratadine (Claritin) 10 MG tabletIndications :Seasonal allergic rhinitis, unspecified trigger Take 1 tablet (10 mg) by mouth in the morning. 90 tablet 024 2024 Discontinued(A lternate therapy) mineral oil-hydrophilic petrolatum (Aquaphor) ointmentIndicatio ns:Other constipation Apply topically if needed for dry skin. 396 g 1 024 2024 hydrOXYzine HCl (Atarax) 25 MG tabletIndications :Anxiety and depression Take 1 tablet (25 mg) by mouth at bedtime. May take an additional tablet as needed for anxiety. Do not take more than 4 tablets in one day. 30 tablet 1 025 2024 Discontinued Active Problems Problem Noted Date Diagnosed Date Anxiety disorder, unspecified 09/19/2024 Cough 04/24/2024 Acute bacterial conjunctivitis of right eye 04/09 Assessment & Plan (05/19/2024 2:37 PM EDT): Advised warm compresses, if no improvement may add topical erythromycin Anticipatory guidance reviewed Note for school/work given Major depressive disorder, recurrent, mild 12/21 Assessment & Plan (05/18/2024 10:13 AM EDT): -continue current regimen -advised on the benefits of engaging in gentle yoga practices, meditation, deep breathing and journaling along with physical activity to aid in symptom improvement -Contact health center if symptoms worsen or do not improve with treatment of if experiencing thoughts of suicide or self harm -continue engaging with therapist -follow-up as needed Assessment & Plan (03/28/2024 5:26 PM EDT): -continue hydroxyzine 25 mg nightly increasing to 50 mg as needed. May take additional doses during the day as needed symptoms. 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 Prescription sent to pharmacy -advised on the benefits of engaging in deep breathing exercises taught today, journaling along with physical activity to aid in symptom improvement -provided with prescription sheet for [employer] to assist in obtaining membership. Mom made aware that I am not sure this process will serve in the same capacity as the voucher she [facility] received [facility]. -patient states she likes to dance. 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 Advised to monitor closely for increase in asthma symptoms and call the clinic if this should occur due to beta abdirashid use -follow-up 1 month to assess for symptom improvement Influenza A 07/19/2023 Routine adult health maintenance 06/23/2023 Assessment & Plan (06/23/2023 5:13 PM EST): -declined HIV, Hep C, STI screening due to no risk -lipid screening ordered today -vaccinated elsewhere for flu Constipation 03/18/2023 Assessment & Plan (12/21/2023 10:55 AM EDT): -chronic condition -medication refills sent as requested -advised increased fluid and fiber intake. 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 Poorly-controlled X(T) - good surgical result - stable post-operative alignment 2. Seizure disorder; S/P L hemispherectomy; now seizure free 3. L-beating nystagmus 4. No significant refractive error PLAN: 1. RTC 1 year; sooner PRN Difficulty sleeping 01/19/2018 Assessment & Plan (12/21/2023 10:55 AM EDT): -stable with trazadone -medication refill sent to pharmacy Assessment & Plan (07/05/2023 11:55 PM EST): -trazadone dose increased to 100 mg -sleep hygiene measures reviewed: keep a consistent bed and awakening time; avoid coffee, caffinated drink or foods right before bed; avoid looking at phone or TV 30 min before bed; engage in daily physical activity 4-6 hrs before bed; keep the place where you sleep quiet and dark use a white noise machine or ear plugs to block out sound if needed -patient advised to sleep with cell phone outside her room; to prevent sound- wave distrubance. 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 Care management in to speak with the patient and her mother -30 minutes/day of moderate intensity exercise encouraged -educated to avoid intake of soda and sugary drinks -will check lipid levels today Encounters * This document contains information received from the source organization and may not represent a complete record from that organization. Date Type Department Care Team Description 10/10/2024 2:20 PM EST Office Visit [facility] [address] [place] [phone] Oswaldo Edwards MD Gastroenteritis (Primary Dx) 10/10/2024 Orders Only GENERIC EXTERNAL DATA DEPARTMENT Provider, Generic External Data 10/03/[address] [facility] [address] [place] [phone] Gregoria Giang NP chartprep 09/18/[address] [facility] [address] [place] [phone] Katrin Mike RN 09/15/2024 1:45 PM EST Office Visit [facility] [address] [place] [phone] Gregoria Giang NP Hair loss (Primary Dx); Seasonal allergic rhinitis, unspecified trigger; Encounter for health-related screening 09/15/2024 Travel 09/13/[address] [facility] [address] [place] [phone] Gregoria Giang NP Anxiety and depression 09/12/[address] [facility] [address] [place] [phone] Rodrigo Bell MA chartprep 09/12/[address] [facility] [address] [place] [phone] Gregoria Giang NP Other constipation 08/25/[address] [facility] [address] [phone] Oswaldo Edwards MD Viral illness 08/22/[address] [facility] [address] [place] [phone] Rodrigo Bell MA chartprep 08/17/[address] [facility] [address] [place] [phone] Gregoria Giang NP Anxiety and depression 07/25/2024 10:40 AM EST Office Visit [facility] [address] [phone] Oswaldo Edwards MD Viral illness (Primary Dx) 07/25/[address] [facility] [address] [place] [phone] Gregoria Giang NP Telephone Call from Last 3 Months Immunizations Name Administration Dates Next Due DTaP 10/28/2007,12/02/2004,04/01/2004 DTaP / HiB / IPV 01/28/2004,2003 HPV 9-Valent 09/30/2016,05/28/2016,04/09/2016 Hep A, ped/adol, 2 dose 04/09/2016,07/30/2014 Hep B, Adolescent or Pediatric 04/01/2004,2003,2003 Hib (HbOC) 12/02/2004 IPV 10/28/2007,04/01/2004 Influenza Injectable Quadriv alant Preservative Free IIV4 MDCK 11/11/2021 Influenza injectable quadriv alent preservative free 10/25/2020,08/01/2019,05/11/2018,07/15,07/30/2014,05/25/2014 Influenza, Split (incl. hailey fied surface antigen) 05/12/2013,06/21/2012 MMR 10/28/2007,09/04/2004 Meningococcal MCV4P ACYW-135 10/25/2020,04/09/20 16 Tdap 07/30/2014 Varicella 01/11/2008,10/06/2004 Social History Tobacco Use Types Packs/Day Years Used Date Smoking Tobacco: Never Smokeless Tobacco: Never Tobacco Cessation:Counseling Given: Not Answered Alcohol Use Standard Drinks/Week Comments Never 0 [...] not to disclose 2021 10:21 AM EDT Last Filed Vital Signs Vital Sign Reading Time Taken Comments Blood Pressure 106/76 10/10/2024 12:31 PM EST Pulse 75 10/10/2024 12:31 PM EST Temperature 36.1 ??C (97 ??F) 10/10/2024 12:31 PM EST Respiratory Rate 15 09/15/2024 1:46 PM EST Oxygen Saturation 98% 10/10/2024 12:31 PM EST Inhaled Oxygen Concentration - - Weight 82.4 kg (181 lb 9.6 oz) 09/15/2024 1:46 P M EST Height 147.3 cm (4' 10 ) 09/15/2024 1:46 PM EST Body Mass Index 37.95 09/15/2024 1:46 PM EST Plan of Treatment Health Maintenance Due Date Last Done Comments Family Planning (PISQ) 2018 Chlamydia and Gonorrhea Screening 12/07/2021 12/07/2020, 11/21/2020, 05/28/2020, Additional history exists Pneumococcal Vaccine: Pediatrics (0 to 5 Years) and At-Risk Patients (6 to 49) Years) (1 of 2 - PCV) 2022 COVID-19 Vaccine (4 - season) 2024 11/11/2021, 03/11/2021, 02/19/2021 Influenza Vaccine (#1) 2024 , 10/25/2020, 08/01/2019, Additional history exists DTaP/Tdap/Td Vaccines (7 - Td or Tdap) 07/30/2024 07/30/2014, 10/28/2007, 12/02/2004, Additional history exists Pap Smear 2024 Alcohol/Substance Use Screening 09/15/2025 09/15/2024 SDOH Screening 09/15/2025 09/15/2024 Depression Screening 09/19/2025 09/19/2024, 09/19/19 25 Tobacco Screening 10/10/2025 10/10/2024 Lipid Panel 07/07/2028 07/07/2023, 05/10, 10/25/2020 Zoster Vaccines (1 of 2) 2053 RSV Patients and Patients Aged 60 years or older (1 - 1-dose 75+ series) 2078 Hepatitis B Vaccines Completed 04/01/2004, 2003, 2003 HIB Vaccines Completed 12/02/2004, 01/08, 2003 IPV Vaccines Completed 10/28/2007, 03/10, 01/28/2004, Additional history exists Hepatitis A Vaccines Completed 04/09/2016, 07/30/20 14 HPV Vaccines Completed 09/30/2016, 05/10, 04/09/2016 Meningococcal Vaccine Completed 10/25/2020, 016 HIV Screening Completed 09/15/2024 Hepatitis C Screening Completed 09/15/2024 RSV under 20 months Aged Out No longe r eligible based on patient's age to complete this topic Rotavirus Vaccines Aged Out No longer eligible based on patient's age to complete this topic Procedures Procedure Name Priority Date/Time Associated Diagnosis Comments HCG, TOTAL, QN Routine 10/10/2024 2:28 PM EST LIPASE Routine 10/10/2024 2:28 PM EST MAGNESIUM Routine 10/10/2024 2:28 PM EST BASIC METABOLIC PANEL Routine 10/10/2024 2:28 PM EST HEPATIC FUNCTION PANEL Routine 10/10/2024 2:28 PM EST CBC WITH AUTO DIFFERENTIAL Routine 10/10/2024 2:28 PM EST SARS COV2/INFLUENZA A/B AND RSV RNA QL NAAT Routine 10/10/2024 2:28 PM EST HIV 1/2 ANTIGEN/ANTIBODY, FOURTH GENERATION W/RFL Routine 09/15/2024 3:06 PM EST Encounter for health-related screening HEPATITIS C AB W/REFL TO HCV RNA, QN, PCR Routine 09/15/2024 3:06 PM EST Encounter for health-related screening IRON AND TOTAL IRON BINDING CAPACITY Routine 09/15/2024 3:06 PM EST Hair loss CBC WITH AUTO DIFFERENTIAL Routine 09/15/2024 3:06 PM EST Hair loss TSH W/REFLEX TO FT4 Routine 09/15/2024 3 :06 PM EST Hair loss POCT INFLUENZA B (ID NOW RAPID MOLECULAR) Routine 07/25/2024 11:00 AM EST Viral illness POCT INFLUENZA A (ID NOW RAPID MOLECULAR) Routine 07/25/2024 11:00 AM EST Viral illness POC TORO ID NOW STREP A Routine 07/25/2024 11:00 AM EST Viral illness POCT RAPID COVID ANTIGEN Routine 07/25/2024 11:00 AM EST Viral illness LIPID PANEL, STANDARD Routine 07/07/2023 8:28 AM EST Class 3 severe obesity without serious comorbidity with body mass index (BMI) of 40.0 to 44.9 in adult, unspecified obesity type (CMS/HCC) ZZZ HISTORICAL CHLAMYDIA/N. GONORRHOEAE RNA, TMA, UROGENITAL Routine 12/07/2020 9:54 AM EDT from Last 3 Months or Most Recently Relevant to Health Maintenance Results * SARS-CoV-2 RNA, Influenza A/B, and RSV RNA, Ql NAAT (10/10/2024 2:28 PM EST) Influenza A PCR NEGATIVE Negative [facility] Influenza B PCR NEGATIVE Negative [facility] Resp Syncy Virus RNA Qual PCR NEGATIVE Negative [facility] SARS COV2 PCR NEGATIVE Negative [facility] Comment:All test results mus t be correlated with clinical findings.Negative results do not preclude SARS-CoV2, influenza Avirus, influenza B virus and/or RSV infectionand should not be used as the sole basis for treatment orother patient management decisions. Negative results must becombined with clinical observations, patient history, andepidemiological information.This test has not been evaluated for monitoring treatment ofinfection.This test has been authorized by the FDA under an EmergencyUse Authorization (EUA) for use by authorized laboratories.Testing performed on the [employer] GeneXpert utilizingreal-time RT-PCR.All SARS CoV2 and positive influenza A/B results arereported to [facility]. 10/10/2024 2:28 PM EST 10/10/2024 2:31 PM EST Generic External Data Provider LAB MICROBIOLOGY - GENERAL ORDERABLES Final Result [facility] [address] [place] [address] [phone] * (ABNORMAL) CBC auto differential (10/10/2024 2:28 PM EST) Only the most recent of2 resultswithin the time period is included. White Blood Count 20.2(H) 4.8 - 10.8 X10*3/uL [facility] Red Blood Count 5.28 4.20 - 5.50 X10*6/uL [facility] Hemoglobin 14.6 12.0 - 16.0 g/dl [facility] Hematocrit 44.8 37.0 - 47.0 % [facility] Mean Corpuscular Volume 84.8 80.0 - 98.0 fL [facility] Mean Corpuscular Hemoglobin 27.7 27.0 - 33.0 pg [facility] Mean Corpuscular HGB Conc 32.6 31.0 - 35.0 g/dl [facility] Red Cell Distribution Width 12.1 11.0 - 16.0 % [facility] Platelet Count 289 160 - 400 X10*3/uL [facility] Mean Platelet Volume 9.8 9.4 - 12.3 fL [facility] Neutrophils Percent Auto 87.5(H) 45 - 73 % [facility] Imm Gran Pct Auto 0.5(H) 0.0 - 0.4 % [facility] Lymphocytes Percent Auto 8.6(L) 20 - 40 % [facility] Monocytes Percent Auto 3.2 2 - 11 % [facility] Eosinophils Percent Auto 0.0 0 - 4 % [facility] Basophils Percent Auto 0.2 0 - 2 % [facility] NRBC Pct Auto 0.0 0.0 - 0.2 /100WBC [facility] Neutrophils Absolute Auto 17.7(H) 2.0 - 8.3 x10*3/uL [facility] Imm Gran Abs Auto 0.11(H) 0.00 - 0.03 X10*3/uL [facility] Lymphocytes Absolute Auto 1.7 1.2 - 4.9 X10*3/uL [facility] Monocytes Absolute Auto 0.6 0.1 - 1.2 X10*3/uL [facility] Eosinophils Absolute Auto 0.0 0.0 - 0.4 X10*3/uL [facility] Basophils Absolute Auto 0.0 0.0 - 0.2 X10*3/uL [facility] NRBC Abs Auto 0.000 0.0 - 0.012 X10*3/uL [facility] 10/10/2024 2:28 PM EST 10/10/2024 2:31 PM EST us Generic External Data Provider LAB BLOOD ORDERAB LES Final Result [facility] [address] [place] [phone] [phone] * hCG, Total, Quantitative (10/10/2024 2:28 PM EST) HCG Quantitative <2 mIU/mL [facility] Comment:Weeks post LMP Appro ximate hCG(Last Menstrual Period) Range (mIU/ml)3 - 4 weeks 9 - 1304 - 5 weeks 75 - 2,6005 - 6 weeks 850 - 20,8006 - 7 weeks 4000 - 100,2007 - 12 weeks 11,500 - 289,16936 - 16 weeks 18,300 - 137,51271 - 29 weeks (2nd trimester) 1,400 - 53,01644 - 41 weeks (3rd trimester) 940 - 60,000The Toro B- hCG assay is used for the early detection ofpregnancy; it cannot be used to diagnose any conditionunrelated to . If a B-hCG level is not supportedby the clinical evidence, results should be confirmed by analternative method (qualitative urine hCG, for example). 10/10/2024 2:28 PM EST 10/10/2024 2:31 PM EST Generic External Data Provider LAB BLOOD ORDERAB LES Final Result Performing Organization Address City/[facility]/ZIP Co de Phone Number [facility] [address] [place] [phone] * Magnesium (10/10/2024 2:28 PM EST) Magnesium 2.1 1.6 - 2.6 mg/dL [facility] 10/10/2024 2:28 PM EST 10/10/2024 2:31 PM EST Generic External Data Provider LAB BLOOD ORDERAB LES Final Result Performing Organization Address [facility] Co de Phone Number [facility] [address] [place] [phone] Lipase (10/10/2024 2:28 PM EST) Lipase 33 8 - 78 U/L [facility] 10/10/2024 2:28 PM EST 10/10/2024 2:31 PM EST Generic External Data Provider LAB BLOOD ORDERAB LES Final Result Performing Organization Address [facility]/ZIP Co de Phone Number [facility] [address] [place] [phone] * (ABNORMAL) Hepatic Function Panel (10/10/2024 2:28 PM EST) Bilirubin, Total 0.3 0.0 - 1.0 mg/dL [facility] Bilirubin, Direct 0.1 0.0 - 0.5 mg/dL [facility] Aspartate Amino Transferase 23 5 - 31 U/L [facility] Alanine Aminotransferase 19 0 - 31 U/L [facility] Total Protein 9.0(H) 6.5 - 8.0 g/dL [facility] Albumin Level 4.6 3.5 - 5.0 g/dL [facility] Alkaline Phosphatase 78 39 - 117 U/L [facility] 10/10/2024 2:28 PM EST 10/10/2024 2:31 PM EST Generic External Data Provider LAB BLOOD ORDERAB LES Final Result Performing Organization Address [facility] de Phone Number [facility] [address] [place] [phone] Basic Metabolic Panel (10/10/2024 2:28 PM EST) Pathologist [facility] Sodium 141 135 - 145 mmol/L [facility] Potassium 4.1 3.3 - 5.1 mmol/L [facility] Chloride 106 96 - 108 mmol/L [facility] Carbon Dioxide 25 22 - 29 mmol/L [facility] Anion Gap 14 12 - 20 [facility] Urea Nitrogen (BUN) 10 9 - 16 mg/dL [facility] Creatinine, Serum 0.79 0.5 - 1.4 mg/dL [facility] Creatinine Clr Calc Pharmacy 106.1 [facility] Comment:Provided height and weight: 152.4 cm,81 kg.eGFR (calculated from the MDRD study equation) and eCrCl(calculated from the Cockcroft-Gault equation) are based ondifferent parameters and may not yield comparable results.If eCrCl result is absurd, please check patient'sheight/weight. Estimated Glomerular Filt Rate >60 [facility] Comment:Chronic Kidney Disea se: Estimated GFR < 60 mL/min/[id number] Kidney Disease: Estimated GFR < 15 mL/min/1.73m2 Glucose 86 60 - 115 mg/dL [facility] Calcium 9.8 8.4 - 10.2 mg/dL [facility] 10/10/2024 2:28 PM EST 10/10/2024 2:31 PM EST Generic External Data Provider LAB BLOOD ORDERAB LES Final Result Performing Organization Address [facility] de Phone Number [facility] [address] [place] [phone] * TSH W/Reflex to FT4 (09/15/2024 3:06 PM EST) TSH reflex Free T4 0.76 0.32 - 4.0 uIU/mL [facility] Blood Venous blood specimen / Unknown 09/15/2024 3:06 PM EST 09/15/2024 4:15 PM EST Gregoria Giang [employer] REPA[employer] LAB BLOOD ORDERABLES Final Resu lt Performing Organization Address [facility] Co de Phone Number [facility] [address] [place] [phone] * Hepatitis C Antibody with Reflex to HCV, RNA, Quantitative, Real-Time PCR (09/15/2024 3:06 PM EST) Hepatitis C Antibody Nonreactive Nonreactive [facility] Comment:Antibodies to HCV no t detected; does not exclude early acuteHCV infection. Blood Venous blood specimen / Unknown 09/15/2024 3:06 PM EST 09/15/2024 4:15 PM EST [facility] MATRIX REPAIRER LAB BLOOD ORDERABLES Final Resu lt Performing Organization Address [facility] Co de Phone Number [facility] [address] [place] [phone] * Iron And Total Iron Binding Capacity (09/15/2024 3:06 PM EST) Pathologist [facility] Iron 64 30 - 160 mcg/dL [facility] Total Iron Binding Capacity 297 228 - 428 mcg/dL [facility] Percent Iron Saturation 22 15 - 50 % [facility] Unsaturated Iron Binding 233 ug/dL [facility] Blood Venous blood specimen / Unknown 09/15/2024 3:06 PM EST 09/15/2024 4:15 PM EST [facility] MATRIX REPAIRER LAB BLOOD ORDERABLES Final Resu lt Performing Organization Address [facility] de Phone Number [facility] [address] [place] [phone] * HIV-1/2 Antigen and Antibodies, Fourth Generation, with Reflexes (09/15/2024 3:06 PM EST) [facility] HIV AB/AG Nonreactive Nonreactive [facility] Comment:HIV-1 p24 Ag and/or HIV-1/HIV-2 Ab not detected.A test result that is nonreactive does not exclude thepossibility of exposure to or infection with HIV-1 and/orHIV-2. Nonreactive results in this assay for individualswith prior exposure to HIV-1 and/or HIV-2 may be due toantigen and antibody levels that are below the limit ofdetection of this assay.The [employer] HIV Ag/Ab Combo assay result andsupplemental assay results should be interpreted inconjunction with the patient's clinical presentation,history and other laboratory results. If the results areinconsistent with clinical evidence, additional testing issuggested to confirm the result. Blood Venous blood specimen / Unknown 09/15/2024 3:06 PM EST 09/15/2024 4:15 PM EST us Gregoria Giang MATRIX REPAIRER LAB BLOOD ORDERABLES Final Resu lt Performing Organization Address [facility]/ZIP Co de Phone Number [facility] [address] [place] [phone] * Influenza B (ID NOW Rapid Molecular) (07/25/2024 11:00 AM EST) [facility] Influenza B Negative Negative, Indeterminate [facility] Swab 07/25/2024 11:0 0 AM EST us Oswaldo Edwards MD POINT OF CARE TEST ENTER/EDIT O RDERABLES Final Result Performing Organization Address [facility] Co de Phone Number [facility] [address] [place] [phone] * Influenza A (ID NOW Rapid Molecular) (07/25/2024 11:00 AM EST) [facility] Influenza A Negative Negative, Indeterminate [facility] Swab 07/25/2024 11:0 0 AM EST us Oswaldo Edwards MD POINT OF CARE TEST ENTER/EDIT O RDERABLES Final Result Performing Organization Address [facility] Co de Phone Number [facility] [address] [place] [phone] * POCT rapid strep A manually resulted (07/25/2024 11:00 AM EST) [facility] Rapid Strep A Screen Negative Negative, None Detected [facility] Swab 07/25/2024 11:0 0 AM EST us Oswaldo Edwards MD POINT OF CARE TEST ENTER/EDIT O RDERABLES Final Result Performing Organization Address [facility] Co de Phone Number [facility] [address] [place] [phone] * POCT Rapid COVID Ag (07/25/2024 11:00 AM EST) Rapid COVID Ag Negative [facility] Swab 07/25/2024 11:0 0 AM EST us Oswaldo Edwards MD POINT OF CARE TEST ENTER/EDIT O RDERABLES Final Result Performing Organization Address [facility] Co de Phone Number [facility] [address] [place] [phone] * Lipid Panel, Standard (07/07/2023 8:28 AM EST) Triglycerides 94 <150 mg/dL [facility] Comment:Desirable Triglyceri de: less than 90 mg/dLBorderline High Triglyceride: 90-129 mg/dLHigh Triglyceride: greater than 130 mg/dL Cholesterol 151 <200 mg/dL [facility] Comment:Desirable Cholestero l: less than 170 mg/dLBorderline High Cholesterol: 170-199 mg/dLHigh Cholesterol: greater than 200 mg/dL LDL Cholesterol Calculated 91 <100 mg/dL [facility] Comment:Desirable LDL: less than 110 mg/dLBorderline LDL: 110-129 mg/dLHigh LDL: greater than or equal to 130 mg/dL HDL Cholesterol 42 >40 mg/dL [facility] Comment:Desirable HDL: great er than 45 mg/dLBorderline HDL: 40-45 mg/dLLow HDL: less than 40 mg/dL Note: This HDL assay may give artificially low results in patients with liver disease. Blood Venous blood specimen / Unknown 07/07/2023 8:28 AM EST 07/07/2023 11:15 AM EST us Yolanda Bennett MD LAB BLOOD ORDERABLES Final Result Performing Organization Address [facility] Co de Phone Number [facility] [address] [place] [phone] * CHLAMYDIA/N. GONORRHOEAE RNA, TMA, UROGENITAL (12/07/2020 9:54 AM EDT) Chlamydia trachomatis RNA, TMA, Urogenital NOT DETECTED NOT DETECTED [facility] COMMENT SEE COMMENT [facility] Comment: The analytical performance characteristics of this assay, when used to test SurePath(TM) specimens have been determined by [employer]. The modifications have not been cleared or approved by the FDA. This assay has been validated pursuant to the CLIA regulations and is used for clinical purposes. ?? For additional information, please refer to https://education.WhoWanna/faq/STH728 (This link is being provided for information/ educational purposes only.) ?? NO COLLECTION DATE RECEIVED. WE HAVE USED THE DATE THE SPECIMEN WAS RECEIVED BY THIS LABORATORY THE COLLECTION DATE. IF THIS IS INCORRECT, PLEASE CONTACT CLIENT SERVICES. PHONE NUMBER: ?? Neisseria gonorrhoeae RNA, TMA, Urogenital NOT DETECTED NOT DETECTED [facility] 12/07/2020 9:54 AM EDT us Stacie Garcia MD HISTORICAL/NON ORDERABLE LABS Final Result [facility] [address] from Last 3 Months or Most Recently Relevant to Health Maintenance Insurance [facility] C3 Care Teams Dog Day Care Attendant Relationship Specialty Start Date End Date Gregoria Giang NP [address] [place] [phone] PCP - General Family Medicine 05/14/23
--- OUTSIDE RECORDS SUMMARY | 2024-10-10 18:04 | XMS_ITS | Encounter Summary ---
Author Organization [facility] Address [address] [facility] [address] [place] [address] Care Team Providers Care Crayon Grader Name Role Phone Gregoria Giang CONCERT PIANIST Primary Care Provider [phone] Reason for Visit * Reason Comments Med Refill Encounter Details Date Type Department Care Team ([facility] st Contact Info) Description 09/13/2024 Refill [facility] MEDICINE [address] [place] [address] Gregoria Giang NP [address] [place] [address] Anxiety and depression Social History Tobacco Use Types Packs/Day Years [...] housing situation today? I have johnny poon 06/23/[address] you li ve. Do you have problems with any of the following? None of the above 06/23/2023 Food Insecurity Answer Date Recorded Within the past 12 months, y ou worried that your food would run out before you got money to buy more: Often true 2022 Within the past 12 months,th e food you bought just didn't last and you didn't have enough money to get more: Sometimes True 06/23/2023 Transportation Answer Date Recorded In the past 12 months, has l ack of transportation kept you from medical appts, meetings, work or from getting things needed for daily living? Yes, it has kept me from non-medical meetings, work, or getting things that I need 06/23/2023 Utilities Answer Date Recorded In the past 12 months, has t he electric, gas, oil or water company threatened to shut off services in your home? No 06/23/2023 Depression Answer Date Recorded Patient Health Questionnaire-2 Score 1 01/21/2024 Comments Unknown Sex and Gender Information Value Date Recorded Sex Assigned at Female 06/08/2022 10:21 AM EDT Legal Sex Female 10:21 AM EDT Gender Identity Female 06/08/2022 10:21 AM EDT Sexual Orientation Choose not to disclose 2021 10:21 AM EDT documented as of this encounter Plan of Treatment Not on file documented as of this encounter Visit Diagnoses Diagnosis Anxiety and depression documented in this encounter Additional Health Concerns Assessment Noted Time PHQ-9 Depression Total Score: 5 01/21/20 24 10:36 AM EDT documented as of this encounter Care Teams Crayon Grader Relationship Specialty Start Date End Date Gregoria Giang NP [address] [place] [phone] PCP - General Family Medicine 05/14/23 documented as of this encounter
--- OUTSIDE RECORDS SUMMARY | 2024-10-10 18:04 | XMS_ITS | Encounter Summary ---
Author Organization [employer] Address [address] [facility] [address] [place] [address] Care Team Providers Care Supervisor Forming And Tempering Name Role Phone Gregoria Giang NP Primary Care Provider [phone] Reason for Visit * Reason Comments Follow-up Encounter Details Date Type Department Care Team ([facility] st Contact Info) Description 09/15/2024 1:45 PM EST Office Visit [facility] MEDICINE [address] [place] [address] Gregoria Giang NP [address] [place] [address] Hair loss (Primary Dx); Seasonal allergic rhinitis, unspecified trigger; Encounter for health-related screening Social History Tobacco Use Types Packs/Day Years [...] Sign Reading Time Taken Comments Blood Pressure 113/68 09/15/2024 1:46 PM EST Pulse 65 09/15/2024 1:46 PM EST Temperature 37 ??C (98.6 ??F) 09/15/2024 1:46 PM EST Respiratory Rate 15 09/15/2024 1:46 PM EST Oxygen Saturation 100% 09/15/2024 1:46 PM EST Inhaled Oxygen Concentration - - Weight 82.4 kg (181 lb 9.6 oz) 09/15/2024 1:46 P M EST Height 147.3 cm (4' 10 ) 09/15/2024 1:46 PM EST Body Mass Index 37.95 09/15/2024 1:46 PM EST documented in this encounter Plan of Treatment Not on file documented as of this encounter Procedures Procedure Name Priority Date/Time Associated Diagnosis Comments TSH W/REFLEX TO FT4 Routine 09/15/2024 3 :06 PM EST Hair loss CBC WITH AUTO DIFFERENTIAL Routine 09/15/2024 3:06 PM EST Hair loss HEPATITIS C AB W/REFL TO HCV RNA, QN, PCR Routine 09/15/2024 3:06 PM EST Encounter for health-related screening IRON AND TOTAL IRON BINDING CAPACITY Routine 09/15/2024 3:06 PM EST Hair loss HIV 1/2 ANTIGEN/ANTIBODY, FOURTH GENERATION W/RFL Routine 09/15/2024 3:06 PM EST Encounter for health-related screening documented in this encounter Results * HIV-1/2 Antigen and Antibodies, Fourth Generation, with Reflexes (09/15/2024 3:06 PM EST) HIV AB/AG Nonreactive Nonreactive [facility] Comment:HIV-1 p24 Ag and/or HIV-1/HIV-2 Ab not detected.A test result that is nonreactive does not exclude thepossibility of exposure to or infection with HIV-1 and/orHIV-2. Nonreactive results in this assay for individualswith prior exposure to HIV-1 and/or HIV-2 may be due toantigen and antibody levels that are below the limit ofdetection of this assay.The [email or web address] HIV Ag/Ab Combo assay result andsupplemental assay results should be interpreted inconjunction with the patient's clinical presentation,history and other laboratory results. If the results areinconsistent with clinical evidence, additional testing issuggested to confirm the result. Blood Venous blood specimen / Unknown 09/15/2024 3:06 PM EST 09/15/2024 4:15 PM EST Gregoria Giang NP LAB BLOOD ORDERABLES Final Resu lt [facility] [address] [place] [phone] * Hepatitis C Antibody with Reflex to HCV, RNA, Quantitative, Real-Time PCR (09/15/2024 3:06 PM EST) Hepatitis C Antibody Nonreactive Nonreactive [facility] Comment:Antibodies to HCV no t detected; does not exclude early acuteHCV infection. Blood Venous blood specimen / Unknown 09/15/2024 3:06 PM EST 09/15/2024 4:15 PM EST [facility] Cari FIELD MANAGER LAB BLOOD ORDERABLES Final Resu lt Performing Organization Address [facility]/ZIP Co de Phone Number [facility] [address] [place] [phone] * Iron And Total Iron Binding Capacity (09/15/2024 3:06 PM EST) Pathologist [facility] Iron 64 30 - 160 mcg/dL [facility] Total Iron Binding Capacity 297 228 - 428 mcg/dL [facility] Percent Iron Saturation 22 15 - 50 % [facility] Unsaturated Iron Binding 233 ug/dL [facility] Blood Venous blood specimen / Unknown 09/15/2024 3:06 PM EST 09/15/2024 4:15 PM EST Gregoria Cari FIELD MANAGER LAB BLOOD ORDERABLES Final Resu lt Performing Organization Address [facility] Co de Phone Number [facility] [address] [place] [phone] * (ABNORMAL) CBC auto differential (09/15/2024 3:06 PM EST) [facility] White Blood Count 13.1(H) 4.8 - 10.8 X10*3/uL [facility] Red Blood Count 5.26 4.20 - 5.50 X10*6/uL [facility] Hemoglobin 14.5 12.0 - 16.0 g/dl [facility] Hematocrit 44.8 37.0 - 47.0 % [facility] Mean Corpuscular Volume 85.2 80.0 - 98.0 fL [facility] Mean Corpuscular Hemoglobin 27.6 27.0 - 33.0 pg [facility] Mean Corpuscular HGB Conc 32.4 31.0 - 35.0 g/dl [facility] Red Cell Distribution Width 12.4 11.0 - 16.0 % [facility] Platelet Count 353 160 - 400 X10*3/uL [facility] Mean Platelet Volume 10.3 9.4 - 12.3 fL [facility] Neutrophils Percent Auto 52.1 45 - 73 % [facility] Imm Gran Pct Auto 0.4 0.0 - 0.4 % [facility] Lymphocytes Percent Auto 37.5 20 - 40 % [facility] Monocytes Percent Auto 8.1 2 - 11 % [facility] Eosinophils Percent Auto 1.4 0 - 4 % [facility] Basophils Percent Auto 0.5 0 - 2 % [facility] NRBC Pct Auto 0.0 0.0 - 0.2 /100WBC [facility] Neutrophils Absolute Auto 6.8 2.0 - 8.3 x10*3/uL [facility] Imm Gran Abs Auto 0.05(H) 0.00 - 0.03 X10*3/uL [facility] Lymphocytes Absolute Auto 4.9 1.2 - 4.9 X10*3/uL [facility] Monocytes Absolute Auto 1.1 0.1 - 1.2 X10*3/uL [facility] Eosinophils Absolute Auto 0.2 0.0 - 0.4 X10*3/uL [facility] Basophils Absolute Auto 0.1 0.0 - 0.2 X10*3/uL [facility] NRBC Abs Auto 0.000 0.0 - 0.012 X10*3/uL [facility] Blood Venous blood specimen / Unknown 09/15/2024 3:06 PM EST 09/15/2024 4:15 PM EST us Gregoria Giang FIELD MANAGER LAB BLOOD ORDERABLES Final Resu lt [facility] [address] [place], [place] [phone] * TSH W/Reflex to FT4 (09/15/2024 3:06 PM EST) TSH reflex Free T4 0.76 0.32 - 4.0 uIU/mL [facility] Blood Venous blood specimen / Unknown 09/15/2024 3:06 PM EST 09/15/2024 4:15 PM EST us Gregoria Giang NP LAB BLOOD ORDERABLES Final Resu lt [facility] [address] [place] [phone] documented in this encounter Visit Diagnoses Diagnosis Hair loss- Primary Unspecified alopecia Seasonal allergic rhinitis, unspecified trigger Encounter for health-related screening documented in this encounter Additional Health Concerns Assessment Noted Time PHQ-9 Depression Total Score: 5 01/21/20 24 10:36 AM EDT documented as of this encounter Care Teams Supervisor Forming And Tempering Relationship Specialty Start Date End Date Gregoria Giang NP [address] [place] [phone] PCP - General Family Medicine 05/14/23 documented as of this encounter
--- OUTSIDE RECORDS SUMMARY | 2024-10-10 18:04 | XMS_ITS | Encounter Summary ---
Author Organization [employer] Address [address] [place] [address] Care Team Providers Care Care Professionals Name Role Phone Gregoria Giang NP Primary Care Provider [phone] Reason for Visit * Reason Onset Date Comments chartprep 10/03/2024 Encounter Details Date Type Department Care Team (Late st Contact Info) Description 10/03/[address] [facility] [address] [place] [address] Gregoria Giang NP [address] [place] [address] chartprep Social History Tobacco Use Types Packs/Day Years [...] encounter Miscellaneous Notes * Telephone Encounter - Destiny Broussard [place] - 10/03/2024 2:17 PM EST Chart Prep Labs: done Images: not applicable Vaccines due: yes Covid, tdap, pcv20, and flu. Referrals: complete Screenings: pap smear , STI screening Overdue care gaps: none documented in this encounter Plan of Treatment Not on file documented as of this encounter Visit Diagnoses Not on filedocumented in this encounter Additional Health Concerns Assessment Noted Time PHQ-9 Depression Total Score: 7 09/19/19 25 12:07 PM EST documented as of this encounter Care Teams Care Professionals Relationship Specialty Start Date End Date Gregoria Giang NP [address] [place] [phone] PCP - General Family Medicine 05/14/23 documented as of this encounter
--- OUTSIDE RECORDS SUMMARY | 2024-10-10 18:04 | XMS_ITS | Encounter Summary ---
Author Organization [employer] Address [address] [facility] 7t [place] [address] Care Team Providers Care Party Plan Salesperson Name Role Phone Gregoria Giang HINA Primary Care Provider [phone] Encounter Details Date Type Department Care Team ([facility] st Contact Info) Description 10/10/2024 Orders Only GENERIC EXTERNAL DATA DEPARTMENT Provider, Generic External Data Social History Tobacco Use Types Packs/Day Years [...] Procedure Name Priority Date/Time Associated Diagnosis Comments SARS COV2/INFLUENZA A/B AND RSV RNA QL NAAT Routine 10/10/2024 2:28 PM EST CBC WITH AUTO DIFFERENTIAL Routine 10/10/2024 2:28 PM EST HCG, TOTAL, QN Routine 10/10/2024 2:28 PM EST MAGNESIUM Routine 10/10/2024 2:28 PM EST LIPASE Routine 10/10/2024 2:28 PM EST HEPATIC FUNCTION PANEL Routine 10/10/2024 2:28 PM EST BASIC METABOLIC PANEL Routine 10/10/2024 2:28 PM EST documented in this encounter Results * hCG, Total, Quantitative (10/10/2024 2:28 PM EST) HCG Quantitative <2 mIU/mL [facility] Comment:Weeks post LMP Appro ximate hCG(Last Menstrual Period) Range (mIU/ml)3 - 4 weeks 9 - 1304 - 5 weeks 75 - 2,6005 - 6 weeks 850 - 20,8006 - 7 weeks 4000 - 100,2007 - 12 weeks 11,500 - 289,07182 - 16 weeks 18,300 - 137,91001 - 29 weeks (2nd trimester) 1,400 - 53,98038 - 41 weeks (3rd trimester) 940 - 60,000The Akbar B- hCG assay is used for the early detection ofpregnancy; it cannot be used to diagnose any conditionunrelated to . If a B-hCG level is not supportedby the clinical evidence, results should be confirmed by analternative method (qualitative urine hCG, for example). 10/10/2024 2:28 PM EST 10/10/2024 2:31 PM EST Generic External Data Provider LAB BLOOD ORDERAB LES Final Result Performing Organization Address [facility] Co de Phone Number [facility] [address] [place] [phone] * Lipase (10/10/2024 2:28 PM EST) Pathologist [facility] Lipase 33 8 - 78 U/L [facility] 10/10/2024 2:28 PM EST 10/10/2024 2:31 PM EST Generic External Data Provider LAB BLOOD ORDERAB LES Final Result Performing Organization Address [facility] de Phone Number [facility] [address] [place] [phone] * Magnesium (10/10/2024 2:28 PM EST) Pathologist [facility] Magnesium 2.1 1.6 - 2.6 mg/dL [facility] 10/10/2024 2:28 PM EST 10/10/2024 2:31 PM EST Generic External Data Provider LAB BLOOD ORDERAB LES Final Result Performing Organization Address [facility] de Phone Number [facility] [address] [place] [phone] * Basic Metabolic Panel (10/10/2024 2:28 PM EST) Pathologist [facility] Sodium 141 135 - 145 mmol/L [facility] Potassium 4.1 3.3 - 5.1 mmol/L [facility] Chloride 106 96 - 108 mmol/L [facility] Carbon Dioxide 25 22 - 29 mmol/L [facility] Anion Gap 14 12 - 20 [facility] Urea Nitrogen (BUN) 10 9 - 16 mg/dL [facility] Creatinine, Serum 0.79 0.5 - 1.4 mg/dL [facility] Creatinine Clr Calc Pharmacy 106.1 [facility] Comment:Provided height and weight: 152.4 cm,81 kg.eGFR (calculated from the MDRD study equation) and eCrCl(calculated from the Cockcroft-Gault equation) are based ondifferent parameters and may not yield comparable results.If eCrCl result is absurd, please check patient'sheight/weight. Estimated Glomerular Filt Rate >60 [facility] Comment:Chronic Kidney Disea se: Estimated GFR < 60 mL/min/1.72n1Tormwh Kidney Disease: Estimated GFR < 15 mL/min/1.73m2 Glucose 86 60 - 115 mg/dL [facility] Calcium 9.8 8.4 - 10.2 mg/dL [facility] 10/10/2024 2:28 PM EST 10/10/2024 2:31 PM EST us Generic External Data Provider LAB BLOOD ORDERAB LES Final Result [facility] [address] [place] [phone] * (ABNORMAL) Hepatic Function Panel (10/10/2024 2:28 PM EST) Bilirubin, Total 0.3 0.0 - 1.0 mg/dL [facility] Bilirubin, Direct 0.1 0.0 - 0.5 mg/dL [facility] Aspartate Amino Transferase 23 5 - 31 U/L [facility] Alanine Aminotransferase 19 0 - 31 U/L [facility] Total Protein 9.0(H) 6.5 - 8.0 g/dL [facility] Albumin Level 4.6 3.5 - 5.0 g/dL [facility] Alkaline Phosphatase 78 39 - 117 U/L [facility] 10/10/2024 2:28 PM EST 10/10/2024 2:31 PM EST Generic External Data Provider LAB BLOOD ORDERAB LES Final Result Performing Organization Address [facility] Co de Phone Number [facility] [address] [place] [phone] * SARS-CoV-2 RNA, Influenza A/B, and RSV RNA, Ql NAAT (10/10/2024 2:28 PM EST) Influenza A PCR NEGATIVE Negative [facility] Influenza B PCR NEGATIVE Negative [facility] Resp Syncy Virus RNA Qual PCR NEGATIVE Negative [facility] SARS COV2 PCR NEGATIVE Negative [facility] Comment:All test results mus t be [...] use by authorized laboratories.Testing performed on the [employer] GeneXpert utilizingreal-time RT-PCR.All SARS CoV2 and positive influenza A/B results arereported to [facility]. 10/10/2024 2:28 PM EST 10/10/2024 2:31 PM EST Generic External Data Provider LAB MICROBIOLOGY - GENERAL ORDERABLES Final Result Performing Organization Address [facility]/ZIP Co de Phone Number [facility] [address] [place] [phone] * (ABNORMAL) CBC auto differential (10/10/2024 2:28 PM EST) White Blood Count 20.2(H) 4.8 - 10.8 X10*3/uL [facility] Red Blood Count 5.28 4.20 - 5.50 X10*6/uL [facility] Hemoglobin 14.6 12.0 - 16.0 g/dl [facility] Hematocrit 44.8 37.0 - 47.0 % [facility] Mean Corpuscular Volume 84.8 80.0 - 98.0 fL [facility] Mean Corpuscular Hemoglobin 27.7 27.0 - 33.0 pg [facility] Mean Corpuscular HGB Conc 32.6 31.0 - 35.0 g/dl [facility] Red Cell Distribution Width 12.1 11.0 - 16.0 % [facility] Platelet Count 289 160 - 400 X10*3/uL [facility] Mean Platelet Volume 9.8 9.4 - 12.3 fL [facility] Neutrophils Percent Auto 87.5(H) 45 - 73 % [facility] Imm Gran Pct Auto 0.5(H) 0.0 - 0.4 % [facility] Lymphocytes Percent Auto 8.6(L) 20 - 40 % [facility] Monocytes Percent Auto 3.2 2 - 11 % [facility] Eosinophils Percent Auto 0.0 0 - 4 % [facility] Basophils Percent Auto 0.2 0 - 2 % [facility] NRBC Pct Auto 0.0 0.0 - 0.2 /100WBC [facility] Neutrophils Absolute Auto 17.7(H) 2.0 - 8.3 x10*3/uL [facility] Imm Gran Abs Auto 0.11(H) 0.00 - 0.03 X10*3/uL [facility] Lymphocytes Absolute Auto 1.7 1.2 - 4.9 X10*3/uL [facility] Monocytes Absolute Auto 0.6 0.1 - 1.2 X10*3/uL [facility] Eosinophils Absolute Auto 0.0 0.0 - 0.4 X10*3/uL [facility] Basophils Absolute Auto 0.0 0.0 - 0.2 X10*3/uL [facility] NRBC Abs Auto 0.000 0.0 - 0.012 X10*3/uL [facility] 10/10/2024 2:28 PM EST 10/10/2024 2:31 PM EST us Generic External Data Provider LAB BLOOD ORDERAB LES Final Result [facility] [address] [place] [phone] documented in this encounter Visit Diagnoses Not on filedocumented in this encounter Additional Health Concerns Assessment Noted Time PHQ-9 Depression Total Score: 7 09/19/19 25 12:07 PM EST documented as of this encounter Care Teams Party Plan Salesperson Relationship Specialty Start Date End Date Gregoria Giang NP [address] [place] [address] PCP - General Family Medicine 05/14/23 documented as of this encounter
--- OUTSIDE RECORDS SUMMARY | 2024-10-10 18:04 | XMS_ITS | Encounter Summary ---
Author Organization [employer] Address [address] [facility] [address] [place] [address] Care Team Providers Care Underground Electrician Name Role Phone Gregoria Giang HINA Primary Care Provider [phone] Reason for Visit * Reason Onset Date Comments chartprep 09/12/2024 Encounter Details Date Type Department Care Team (Late st Contact Info) Description 09/12/2024 Telephone [facility] MEDICINE [address] [place] [address] Rodrigo Bell MA chartprep Social History Tobacco Use Types Packs/Day [...] is your housing situation today? I have johnnysahara poon 06/23/[address] you [...] encounter Miscellaneous Notes * Telephone Encounter - Rodrigo Bell MA - 09/12/2024 11:49 AM EST Chart Prep Labs: done Images: done Vaccines due: Covid Due, Tdap Due, PCV20 Due, and Flu Due Referrals: Physical Therapy Pending appointment on Screenings: PAP Overdue care gaps: Sbirt, SDOH, and Oral Health documented in this encounter Plan of Treatment Not on file documented as of this encounter Visit Diagnoses Not on filedocumented in this encounter Additional Health Concerns Assessment Noted Time PHQ-9 Depression Total Score: 5 01/21/20 24 10:36 AM EDT documented as of this encounter Care Teams Underground Electrician Relationship Specialty Start Date End Date Gregoria Giang NP [address] [place] [phone] PCP - General Family Medicine 05/14/23 documented as of this encounter
--- OUTSIDE RECORDS SUMMARY | 2024-10-10 18:04 | XMS_ITS | Encounter Summary ---
Author Organization [employer] Address [address] [facility] 7t [place] [address] Care Team Providers Care Multimedia Engineer Name Role Phone Gregoria Giang NP Primary Care Provider [phone] Reason for Visit * Reason Comments Med Refill Encounter Details Date Type Department Care Team ([facility] st Contact Info) Description 09/12/[address] [facility] MEDICINE [address] [place] [address] Gregoria Giang NP [address] [place] [address] Other constipation Social History Tobacco Use Types Packs/Day Years [...] as of this encounter Visit Diagnoses Diagnosis Other constipation documented in this encounter Additional Health Concerns Assessment Noted Time PHQ-9 Depression Total Score: 5 01/21/20 24 10:36 AM EDT documented as of this encounter Care Teams Multimedia Engineer Relationship Specialty Start Date End Date Gregoria Giang NP [address] [place] [phone] PCP - General Family Medicine 05/14/23 documented as of this encounter
--- OUTSIDE RECORDS SUMMARY | 2024-10-10 18:04 | XMS_ITS | Encounter Summary ---
Author Organization [employer] Address [address] [facility] 7t [place] [address] Care Team Providers Care Ophthalmic Surgical Assistant Name Role Phone Gregoria Giang NP Primary Care Provider [phone] Reason for Visit * Reason Onset Date Comments PT1 02/07/2024 Encounter Details Date Type Department Care Team ([facility] st Contact Info) Description 02/07/[address] [facility] MEDICINE [address] [place] [address] Gregoria Giang NP [address] [place] [address] PT1 Social History Tobacco Use Types Packs/Day Years [...] encounter Miscellaneous Notes * Telephone Encounter - Alda Jimenez - 02/07/2024 4:02 PM EDT Patient calling requesting PT1 Home Address verified: Y/N: Yes Provider name or facility name: [facility] Facility Address: [address] [place] [address] Escort needed: Y/N: Yes mother will be going with pt Do you have a wheelchair: Y/N: No If yes- Manual or electric: no pt uses a walker Visits: 3-4x a month documented in this encounter Plan of Treatment Not on file documented as of this encounter Visit Diagnoses Not on filedocumented in this encounter Additional Health Concerns Assessment Noted Time PHQ-9 Depression Total Score: 5 01/21/20 24 10:36 AM EDT documented as of this encounter Care Teams Ophthalmic Surgical Assistant Relationship Specialty Start Date End Date Gregoria Giang NP [address] [place] [address] PCP - General Family Medicine 05/14/23 documented as of this encounter
--- OUTSIDE RECORDS SUMMARY | 2024-10-10 18:05 | XMS_ITS | Encounter Summary ---
Author Organization [employer] Address [address] [facility] 7t [place] [address] Care Team Providers Care Medical Leader Name Role Phone Genevieve Haney Primary Care Provider [phone] Gregoria Giang NP Primary Care Provider [phone] Encounter Details Date Type Department Care Team (Late st Contact Info) Description 08/17/2022 Orders Only [facility] CHC MED & PEDS [address] [place] [address] Kat Henao LPN Social History Tobacco Use Types Packs/Day Years [...] Diagnoses Not on filedocumented in this encounter Care Teams Medical Leader Relationship Specialty Start Date End Date Genevieve Haney FNP PCP - General Family Medicine 12/09/21 05/13/23 Gregoria Giang NP [address] [place] [phone] PCP - General Family Medicine 05/14/23 documented as of this encounter
--- OUTSIDE RECORDS SUMMARY | 2024-10-10 18:05 | XMS_ITS | Encounter Summary ---
Author Organization [employer] Address [address] [facility] 7t [place] [address] Care Team Providers Care Director Medical Science Name Role Phone Gregoria Giang NP Primary Care Provider [phone] Reason for Visit * Reason Onset Date Comments Appointment Request 2023 Encounter Details Date Type Department Care Team ([facility] st Contact Info) Description 2023 Telephone [facility] MEDICINE [address] [place] [address] Gregoria Giang NP [address] [place] [address] Appointment Request Social History Tobacco Use Types Packs/Day Years Used Date Smoking Tobacco: Never Smokeless Tobacco: Never Alcohol Use Standard Drinks/Week Comments Never 0 (1 standard drink = 0.6 oz pur e alcohol) Depression Answer Date Recorded Patient Health Questionnaire-9 Score 21 06/23/2023 Patient Health Questionnaire-9 Score 21 06/23/2023 Last PHQ-9: Questionnaire Data Not on file 1 08/23/2022 Housing Stability Answer Date Recorded What is your housing situation today? I have jonhny poon 06/23/[address] you [...] Answer Date Recorded Patient Health Questionnaire-2 Score 6 06/23/2023 Comments Unknown Sex and Gender Information Value Date Recorded Sex Assigned at Female 06/08/2022 10:21 AM EDT Legal Sex Female 10:21 AM EDT Gender Identity Female 06/08/2022 10:21 AM EDT Sexual Orientation Choose not to disclose 2021 10:21 AM EDT documented as of this encounter Miscellaneous Notes * Telephone Encounter - Karthik Vidales - 2023 2:13 PM EST Tc from pt mother requesting to r/s appt for Follow up on 2023 @ 3:00 pm documented in this encounter Plan of Treatment Not on file documented as of this encounter Visit Diagnoses Not on filedocumented in this encounter Additional Health Concerns Assessment Noted Time PHQ-9 Depression Total Score: 21 023 3:07 PM EST documented as of this encounter Care Teams Director Medical Science Relationship Specialty Start Date End Date Gregoria Giang NP [address] [place] [phone] PCP - General Family Medicine 05/14/23 documented as of this encounter
--- OUTSIDE RECORDS SUMMARY | 2024-10-10 18:05 | XMS_ITS | Encounter Summary ---
Author Organization [employer] Address [address] [facility] 7t [place] [address] Care Team Providers Care Supply Chain Specialist Name Role Phone Genevieve Haney Primary Care Provider [phone] Gregoria Giang NP Primary Care Provider [phone] Encounter Details Date Type Department Care Team (Latest Contact Info) Description 10/27/2018 Abstract [facility] Dental, Provider, DDS Social History Tobacco Use Types Packs/Day Years [...] on filedocumented in this encounter Care Teams Supply Chain Specialist Relationship Specialty Start Date End Date Genevieve Haney FNP PCP - General Family Medicine 12/09/21 05/13/23 Gregoria Giang NP [address] [place] [phone] PCP - General Family Medicine 05/14/23 documented as of this encounter
--- OUTSIDE RECORDS SUMMARY | 2024-10-10 18:05 | XMS_ITS | Encounter Summary ---
Author Organization [employer] Address [address] [facility] [address] [place] [address] Care Team Providers Care Scada Engineer Name Role Phone Genevieve Haney Primary Care Provider [phone] Gregoria Giang NP Primary Care Provider [phone] Encounter Details Date Type Department Care Team (Late st Contact Info) Description 12/18/2022 Orders Only [facility] CHC MED & PEDS [address] [place] [address] Kat Henao LPN Social History Tobacco Use [...] on filedocumented in this encounter Care Teams Scada Engineer Relationship Specialty Start Date End Date Genevieve Haney FNP PCP - General Family Medicine 12/09/21 05/13/23 Gregoria Giang NP [address] [place] [phone] PCP - General Family Medicine 05/14/23 documented as of this encounter
--- OUTSIDE RECORDS SUMMARY | 2024-10-10 18:05 | XMS_ITS | Encounter Summary ---
Author Organization [employer] Address [address] [facility] [address] [place] [address] Care Team Providers Care Couples Therapist Name Role Phone Genevieve Haney Primary Care Provider [phone] Gregoria Giang NP Primary Care Provider [phone] Encounter Details Date Type Department Care Team (Late st Contact Info) Description 10/27/2022 Orders Only [facility] CHC MED & PEDS [address] [place], [place] [phone] Kat Henao LPN Social History Tobacco Use [...] on filedocumented in this encounter Care Teams Couples Therapist Relationship Specialty Start Date End Date Genevieve Haney FNP PCP - General Family Medicine 12/09/21 05/13/23 Gregoria Giang NP [address] [place] [address] PCP - General Family Medicine 05/14/23 documented as of this encounter
--- OUTSIDE RECORDS SUMMARY | 2024-10-10 18:05 | XMS_ITS | Clinical Summary ---
Author Organization [facility] Address [address] [place] [address] Care Team Providers Care Accuracy Expert Name Role Phone Stacie Garcia MD Primary Care Provider [phone] Allergies No known active allergies Medications FLUoxetine [...] [place] [facility] [facility] Care Teams Accuracy Expert Relationship Specialty Start Date End Date Stacie Garcia MD [address] [place] [address] [place] [phone] PCP - General 04/30/22
[2024-10-10 20:37] VITALS: BP 108/67; PULSE 72; RESP 18; TEMP 36.6; O2SAT 100
[2024-10-10 22:45] LABS: Appearance Urine Cloudy; Color Urine Dark Yellow; Glucose Urine UA Negative (Negative); Leukocyte Esterase Urine Small (1+) (Negative); Nitrite Urine Negative (Negative); PH 5.5 (5.0-9.0); Specific Gravity - Urine >= 1.030 (1.005-1.025); UMIC TRIGGER UACC YES; Urine Blood Negative (Negative); Urine Ketones Trace mg/dL (Negative); Urine Protein Trace mg/dL (Neg-Trace)
[2024-10-10 23:09] LABS: Bacteria Urine 2+ (None Seen); Calcium Oxalate Crystals Urine Present; UACC Culture Trigger YES
[2024-10-10 23:10] LABS: Hyaline Casts Urine 0-2 /LPF (0-2)
--- NOTE | 2024-10-10 23:17 | PC.NURSE ---
pt called back to [facility] bed 2 from . per mom patient had vomiting/diarrhea at school today. last episode of vomiting at 12 pm today. reports only one episode since she has been in . pt changed into hospital gown. waiting to be seen by ED provider at this time.
--- NOTE | 2024-10-11 00:12 | PC.NURSE ---
this RN attempted for iv line x 2 without success. bagel maker paul in room attempting line/blood cultures now.
--- NOTE | 2024-10-11 00:36 | PC.NURSE ---
second RN unable to obtain iv access either. VOICE DATA COMMUNICATIONS ENGINEER Mauro made aware - will attempt to look with ultrasound machine.
[2024-10-11 00:43] VITALS: BP 101/64; PULSE 62
[2024-10-11 00:44] VITALS: BP 103/70; BP 109/66; PULSE 70; PULSE 74
[2024-10-11 00:45] VITALS: BP 101/64; PULSE 62; RESP 18; O2SAT 100
--- NOTE | 2024-10-11 00:49 | MHC.EDTECH ---
hot packs placed on pts arm/hands, will attempt blood draw when back from CT.
--- NOTE | 2024-10-11 01:00 | PC.NURSE ---
per Mauro TRAY FILLER pt given oral fluids po to drink as pt has not had any vomiting/diarrhea since being here.
--- NOTE | 2024-10-11 01:31 | PC.NURSE ---
iv fluids/abx cancelled. will administer IM ceftriaxone as ordered.
[2024-10-11] MEDS: cefTRIAXone sodium 1 GM, Lidocaine HCl 1 % MPF 2.1 ML IM (01:33)
[2024-10-11 01:38] LABS: Lactic Acid 1.2 mmol/L (0.5-2.0)
[2024-10-11 02:17] VITALS: BP 101/64; PULSE 62; RESP 18; TEMP 36.6; O2SAT 100
== END 2024-10-11 02:18 | disposition home or self-care (01) ==
PROVIDERS: Emergency Medicine; Nurse Practitioner Family; Emergency Provider Emergency Medicine Emergency Medical Services; PCP Nurse Practitioner
DX: N39.0 Urinary tract infection, site not specified (principal); K59.00 Constipation, unspecified; R11.2 Nausea with vomiting, unspecified; R19.7 Diarrhea, unspecified; R51.9 Headache, unspecified; Z79.899 Other long term (current) drug therapy; Z03.818 Encounter for observation for suspected exposure to other biological agents ruled out
CPT/HCPCS: 0241U; 36415; 70450; 74176; 80048; 80076; 81001; 82550; 83605; 83690; 83735; 84702; 85025; 87040; 87086; 96372; 99284; J0696; J2003

== ENCOUNTER → 2024-10-11 00:39 | Outpatient (BNV) | payer MEDICAID, SELFPAY | PROVIDERS: Emergency Provider Emergency Medicine Emergency Medical Services; PCP Nurse Practitioner; Visit Provider Radiology Neuroradiology | DX: R10.9 Unspecified abdominal pain (principal); R11.2 Nausea with vomiting, unspecified | CPT/HCPCS: 70450; 74176 ==

== ENCOUNTER 2024-11-21 15:00 | Outpatient (RCR) | payer MEDICAID, SELFPAY | END 2025-01-30 17:20 | disposition home or self-care (01) | LOC: HO.PT 15:00 | PROVIDERS: PCP Nurse Practitioner; Visit Provider Nurse Practitioner | DX: G81.91 Hemiplegia, unspecified affecting right dominant side (principal) | CPT/HCPCS: 97110; 97112; 97162; 97530 ==